=== PATIENT | female | born 1930 | race Caucasian/White ===

== ENCOUNTER 2016-04-07 08:54 | Inpatient (IN) ==
[2016-04-07] MEDS ORDERED: 0.9 % Sodium Chloride 500 ML IVC ONE (08:59)
--- NOTE | 2016-04-07 09:09 | Emergency Department Note ---
Disposition Clinical Impression: Elevated troponin, Elevated brain natriuretic peptide (BNP) level Atrial fibrillation Qualifiers: Atrial fibrillation type: unspecified Qualified Code(s): I48.91 - Unspecified atrial fibrillation Disposition: Admitted As Inpatient Condition: Good Referrals: NO,PCP [Non-Partnered Physician] - Forms: ED Satisfaction Letter General Adult HPI - General Chief complaint: ED Chest Pain Stated complaint: chest pain Time Seen by Provider: 04/07/16 08:59 Nursing Notes Reviewed: Yes Vital Signs Reviewed: Yes - Related Data Home Medications Medication Instructions Recorded Confirmed Alendronate Sodium 70 mg PO QWEEK PRN 03/15/15 03/15/15 Amlodipine [Norvasc] 5 mg PO DAILY 03/15/15 03/15/15 Aspirin Enteric Coated [Aspirin EC] 81 mg PO DAILY 03/15/15 03/15/15 Donepezil [Aricept] 10 mg PO DAILY 03/15/15 03/15/15 Escitalopram [Lexapro] 20 mg PO DAILY 03/15/15 03/15/15 Hydrochlorothiazide [Microzide] 12.5 mg PO DAILY 03/15/15 03/15/15 Levothyroxine [Synthroid] 75 mcg PO DAILY 03/15/15 03/15/15 Losartan [Cozaar] 100 mg PO DAILY 03/15/15 03/15/15 Meloxicam [Mobic] 7.5 mg PO DAILY 03/15/15 03/15/15 Metoprolol [Lopressor] 50 mg PO BID 03/15/15 03/15/15 Multivit-Min/FA/Lycopen/Lutein 1 tab PO DAILY 03/15/15 03/15/15 [Centrum Silver Tablet] Pantoprazole Sodium [Protonix] 40 mg PO BID 03/15/15 03/15/15 Potassium Chloride [Klor-Con 10 meq PO DAILY 03/15/15 03/15/15 Sprinkle] Timolol Maleate 0.5% 1 drop BOTH EYES BID 03/15/15 03/15/15 Allergies Allergy/AdvReac Type Severity Reaction Status Date / Time No Known Allergies Allergy Verified 04/07/16 09:07 Past Medical History - Past Medical History Medical history: Reports: hypertension Surgical history: Reports: cholecystectomy, hysterectomy Psychiatric history: Reports: no psych history WET PAN MIXER history: Reports: no WET PAN MIXER history - Social History Smoking Status: Never smoker Smokeless Tobacco Status: No Alcohol use: Reports: none Drug use: Reports: none Course Vital Signs Temperature 99.2 F 04/07/16 08:55 Pulse Rate 114 04/07/16 08:55 Respiratory Rate 18 04/07/16 08:55 Blood Pressure 160/110 04/07/16 08:55 O2 Sat by Pulse Oximetry 86 L 04/07/16 08:55 Temperature 99.2 F 04/07/16 08:55 Pulse Rate 83 04/07/16 11:07 Respiratory Rate 17 04/07/16 11:07 Blood Pressure 109/82 04/07/16 11:07 O2 Sat by Pulse Oximetry 93 L 04/07/16 11:07 Oxygen Delivery Oxygen Delivery Nasal Cannula Medical Decision Making - MDM Narrative Medical decision making narrative: I examined this patient and my medical decision-making was reviewed with the MUD JACK NOZZLE WORKER/PA/Advanced Practice Nurse/Resident Physician. I agree with the documented findings, disposition and treatment plan as described except to the extent set forth below. Patient presents today with chest discomfort that woke her from sleep this morning medics stated that she had A. fib with RVR. According to her she does not know that she has a history of that. Waiting for her to get here for some better history. And an EKG. She has no chest pain now as she has no fevers no back pain. Saw her today with Dr. Ardon, agree with his evaluation and management plan, supervise care the patient's stay. Most likely she will need admission. Order a cardiac workup and determine whether she needs rate control at this point. Her current EKG shows an atrial fibrillation with rapid ventricular response rate is 120 her QRS is 96 her QTC is 407 no signs of acute ischemia she does have an old EKG from 2014 at that time she was in a sinus rhythm. Chest X-Ray 04/07/16 08:59 IMPRESSION: Cardiomegaly with interstitial pulmonary edema and small right pleural effusion consistent with CHF. D/ / Mechelle Ac MD / Mechelle Ac MD Interpreting Provider: Mechelle Ac MD 1108 hours: Heart rates down in the low 100s, and give her a small dose Lasix and she has CHF. She will need admission. Waiting on the rest of her labs then we will discuss with hospitalist. Repeat EKG shows atrial fibrillation with a decreased rate of 80, QRS is 96, QTC is 414, does have ST segment depression in leads V3 through V6 that was present on the previous EKG and also is a similar pattern on EKG from 2015. Patient does have the elevation in her troponin she did get aspirin here. Is currently having no chest pain. 1130 hrs.: Patient's heart rate now is down in the 80s but still in A. fib. She is doing better at this time. Speaking with hospitalist for admission. Patient's critical care time exclusive A separately billable procedures is 45 minutes. - Lab Data Result diagrams: 04/07/16 09:24 04/07/16 09:24 Lab Results 04/07/16 04/07/16 04/07/16 Range/Units 09:24 09:24 09:24 WBC 9.3 (4.3-11.1) K/mcL RBC 3.50 L (3.82-4.97) M/mcL Hgb 10.3 L (11.5-15.4) g/dL Hct 32.6 L (35.3-44.9) % MCV 93.1 (83.0-100.0) fL MCH 29.4 (28.0-33.3) pg MCHC 31.6 (31.6-35.5) g/dL RDW 13.2 (11.5-14.5) % Plt Count 194 (140-400) K/mcL MPV 10.6 (9.4-12.4) fL Immature Gran % 0.4 (0-4) % Seg Neutrophils % 81.5 % Lymphocytes % 8.9 % Monocytes % 7.6 % Eosinophils % 1.2 % Basophils % 0.4 % Neutrophils # 7.5 (1.6-8.9) K/mcL Lymphocytes # 0.8 (0.6-4.6) K/mcL Monocytes # 0.7 (0.0-1.3) K/mcL Eosinophils # 0.1 (0.0-0.6) K/mcL Basophils # 0.0 (0.0-0.2) K/mcL Sodium 143 (136-145) mEq/L Potassium 3.6 (3.5-4.5) mEq/L Chloride 108 (98-109) mEq/L Carbon Dioxide 29 (19-29) mEq/L BUN 25 H (7-20) mg/dL Creatinine 1.08 (0.57-1.11) mg/dL Est GFR ( Amer) 59 L (> 60) Est GFR (Non-Af Amer) 48 L (> 60) BUN/Creatinine Ratio 23 (6-26) Glucose 104 H (70-99) mg/dL Calculated Osmolality 301 H (280-300) Calcium 8.2 L (8.6-10.8) mg/dL Troponin I 1.29 H* (0-0.03) ng/mL B-Natriuretic Peptide (0-100) pg/mL TSH (0.350-4.840) mcIU/mL 04/07/16 04/07/16 Range/Units 09:24 09:24 WBC (4.3-11.1) K/mcL RBC (3.82-4.97) M/mcL Hgb (11.5-15.4) g/dL Hct (35.3-44.9) % MCV (83.0-100.0) fL MCH (28.0-33.3) pg MCHC (31.6-35.5) g/dL RDW (11.5-14.5) % Plt Count (140-400) K/mcL MPV (9.4-12.4) fL Immature Gran % (0-4) % Seg Neutrophils % % Lymphocytes % % Monocytes % % Eosinophils % % Basophils % % Neutrophils # (1.6-8.9) K/mcL Lymphocytes # (0.6-4.6) K/mcL Monocytes # (0.0-1.3) K/mcL Eosinophils # (0.0-0.6) K/mcL Basophils # (0.0-0.2) K/mcL Sodium (136-145) mEq/L Potassium (3.5-4.5) mEq/L Chloride (98-109) mEq/L Carbon Dioxide (19-29) mEq/L BUN (7-20) mg/dL Creatinine (0.57-1.11) mg/dL Est GFR ( Amer) (> 60) Est GFR (Non-Af Amer) (> 60) BUN/Creatinine Ratio (6-26) Glucose (70-99) mg/dL Calculated Osmolality (280-300) Calcium (8.6-10.8) mg/dL Troponin I (0-0.03) ng/mL B-Natriuretic Peptide 1718 H (0-100) pg/mL TSH 4.241 (0.350-4.840) mcIU/mL
--- NOTE | 2016-04-07 09:19 | Emergency Department Note ---
Disposition Clinical Impression: Elevated troponin, Elevated brain natriuretic peptide (BNP) level Atrial fibrillation Qualifiers: Atrial fibrillation type: unspecified Qualified Code(s): I48.91 - Unspecified atrial fibrillation Disposition: Admitted As Inpatient Condition: Good Chest Pain HPI - General Chief Complaint: ED Chest Pain Stated Complaint: chest pain Time Seen by Provider: 04/07/16 08:59 Source: patient, EMS Vital Signs Reviewed: Yes Nursing Notes Reviewed: Yes - History of Present Illness HPI Narrative: Past medical history of dementia, CVA, hypertension presents by EMS from home for evaluation of chest pain that awoke her from sleep. Patient's symptoms started 2 days ago with fatigue. Patient's chest pain started this a.m. Sharp pain in the middle of her chest. Currently resolved. Found to be in atrial fibrillation with RVR by EMS. Heart rate from 110-160 with a median of 120s. Patient has had fatigue for 2 days but no other instigating symptoms including no fever, chills, weight changes, cough, abdominal pain, changes in bowel movement, urinary symptoms. Severity scale (1-10): 0 - Related Data Home Medications Medication Instructions Recorded Confirmed Alendronate Sodium 70 mg PO QWEEK PRN 03/15/15 03/15/15 Amlodipine [Norvasc] 5 mg PO DAILY 03/15/15 03/15/15 Aspirin Enteric Coated [Aspirin EC] 81 mg PO DAILY 03/15/15 03/15/15 Donepezil [Aricept] 10 mg PO DAILY 03/15/15 03/15/15 Escitalopram [Lexapro] 20 mg PO DAILY 03/15/15 03/15/15 Hydrochlorothiazide [Microzide] 12.5 mg PO DAILY 03/15/15 03/15/15 Levothyroxine [Synthroid] 75 mcg PO DAILY 03/15/15 03/15/15 Losartan [Cozaar] 100 mg PO DAILY 03/15/15 03/15/15 Meloxicam [Mobic] 7.5 mg PO DAILY 03/15/15 03/15/15 Metoprolol [Lopressor] 50 mg PO BID 03/15/15 03/15/15 Multivit-Min/FA/Lycopen/Lutein 1 tab PO DAILY 03/15/15 03/15/15 [Centrum Silver Tablet] Pantoprazole Sodium [Protonix] 40 mg PO BID 03/15/15 03/15/15 Potassium Chloride [Klor-Con 10 meq PO DAILY 03/15/15 03/15/15 Sprinkle] Timolol Maleate 0.5% 1 drop BOTH EYES BID 03/15/15 03/15/15 Allergies Allergy/AdvReac Type Severity Reaction Status Date / Time No Known Allergies Allergy Verified 04/07/16 09:07 Constitutional: Reports: weakness. Denies: fever, chills Eyes: Denies: eye pain Cardiovascular: Reports: chest pain, dyspnea on exertion Respiratory: Denies: cough, wheezes, sputum production Gastrointestinal: Denies: abdominal pain Genitourinary: Denies: urgency, dysuria Musculoskeletal: Denies: back pain Integumentary: Denies: rash, abrasion Psychiatric: Denies: anxiety Endocrine: Reports: fatigue Chest Pain PMH - Past Medical History Medical history: Reports: hypertension Surgical history: Reports: cholecystectomy, hysterectomy Psychiatric history: Reports: no psych history TELEMEDICINE PHYSICIAN history: Reports: no TELEMEDICINE PHYSICIAN history - Social History Smoking Status: Never smoker Alcohol use: Reports: none Drug use: Reports: none Physical Exam - General General appearance: alert, in no apparent distress - Head Head exam: atraumatic, normocephalic - Eye Eye exam: Present: normal appearance - ENT ENT exam: normal exam - Neck Neck exam: Present: normal inspection - Chest Chest inspection: Present: normal inspection, symmetric chest wall rise. Absent : tenderness - Respiratory Respiratory exam: Present: other (Rales at the bases). Absent: respiratory distress - Cardiovascular Cardiovascular exam: Present: tachycardia, irregular rhythm - Abdominal Exam Abdominal exam: Present: soft, Non-Tender - Extremities Exam Extremities exam: Present: normal inspection, full ROM - Back Exam Back exam: Present: normal inspection, full ROM - Neurological Exam Neurological exam: Present: alert, oriented X3 Course - Reevaluation(s) Reevaluation #1: Patient with elevated troponin, BNP, and x-ray consistent with vascular congestion. Patient given Cardizem for atrial fibrillation with RVR. Rate currently controlled. Patient will be admitted to the hospital for further evaluation. - Consultations Consultation #1: Discussed with Dr. Salas. Patient accepted Vital Signs Temperature 99.2 F 04/07/16 08:55 Pulse Rate 114 04/07/16 08:55 Respiratory Rate 18 04/07/16 08:55 Blood Pressure 160/110 04/07/16 08:55 O2 Sat by Pulse Oximetry 86 L 04/07/16 08:55 Temperature 99.2 F 04/07/16 08:55 Pulse Rate 75 04/07/16 11:40 Respiratory Rate 15 04/07/16 11:40 Blood Pressure 138/94 04/07/16 11:40 O2 Sat by Pulse Oximetry 93 L 04/07/16 11:40 Oxygen Delivery Oxygen Delivery Nasal Cannula Chest Pain - MDM Narrative Medical decision making narrative: I examined this patient and my medical decision-making was reviewed with the SUPPORT STAFF/PA/Advanced Practice Nurse/Resident Physician. I agree with the documented findings, disposition and treatment plan as described except to the extent set forth below. Prior this patient with Dr. Ardon, agree with his evaluation and management plan, I supervised patients today. Patient presents today with weakness since being on for a couple days A. fib with RVR which is new. When ahead and did a cardiac workup and treated her. Her heart rate is coming down after getting Cardizem here. They were ready to bring her into the hospital. Impression is acute onset of atrial fib with RVR. She has an elevation in her troponin which may be related to the atrial fibrillation but needs to be followed also. She will continue on the Cardizem. And then we will reassess her and speak to the hospitalist for admission. - Lab Data Result diagrams: 04/07/16 09:24 04/07/16 09:24 Lab Results 04/07/16 04/07/16 04/07/16 Range/Units 09:24 09:24 09:24 WBC 9.3 (4.3-11.1) K/mcL RBC 3.50 L (3.82-4.97) M/mcL Hgb 10.3 L (11.5-15.4) g/dL Hct 32.6 L (35.3-44.9) % MCV 93.1 (83.0-100.0) fL MCH 29.4 (28.0-33.3) pg MCHC 31.6 (31.6-35.5) g/dL RDW 13.2 (11.5-14.5) % Plt Count 194 (140-400) K/mcL MPV 10.6 (9.4-12.4) fL Immature Gran % 0.4 (0-4) % Seg Neutrophils % 81.5 % Lymphocytes % 8.9 % Monocytes % 7.6 % Eosinophils % 1.2 % Basophils % 0.4 % Neutrophils # 7.5 (1.6-8.9) K/mcL Lymphocytes # 0.8 (0.6-4.6) K/mcL Monocytes # 0.7 (0.0-1.3) K/mcL Eosinophils # 0.1 (0.0-0.6) K/mcL Basophils # 0.0 (0.0-0.2) K/mcL Sodium 143 (136-145) mEq/L Potassium 3.6 (3.5-4.5) mEq/L Chloride 108 (98-109) mEq/L Carbon Dioxide 29 (19-29) mEq/L BUN 25 H (7-20) mg/dL Creatinine 1.08 (0.57-1.11) mg/dL Est GFR ( Amer) 59 L (> 60) Est GFR (Non-Af Amer) 48 L (> 60) BUN/Creatinine Ratio 23 (6-26) Glucose 104 H (70-99) mg/dL Calculated Osmolality 301 H (280-300) Calcium 8.2 L (8.6-10.8) mg/dL Troponin I 1.29 H* (0-0.03) ng/mL B-Natriuretic Peptide (0-100) pg/mL TSH (0.350-4.840) mcIU/mL 04/07/16 04/07/16 Range/Units 09:24 09:24 WBC (4.3-11.1) K/mcL RBC (3.82-4.97) M/mcL Hgb (11.5-15.4) g/dL Hct (35.3-44.9) % MCV (83.0-100.0) fL MCH (28.0-33.3) pg MCHC (31.6-35.5) g/dL RDW (11.5-14.5) % Plt Count (140-400) K/mcL MPV (9.4-12.4) fL Immature Gran % (0-4) % Seg Neutrophils % % Lymphocytes % % Monocytes % % Eosinophils % % Basophils % % Neutrophils # (1.6-8.9) K/mcL Lymphocytes # (0.6-4.6) K/mcL Monocytes # (0.0-1.3) K/mcL Eosinophils # (0.0-0.6) K/mcL Basophils # (0.0-0.2) K/mcL Sodium (136-145) mEq/L Potassium (3.5-4.5) mEq/L Chloride (98-109) mEq/L Carbon Dioxide (19-29) mEq/L BUN (7-20) mg/dL Creatinine (0.57-1.11) mg/dL Est GFR ( Amer) (> 60) Est GFR (Non-Af Amer) (> 60) BUN/Creatinine Ratio (6-26) Glucose (70-99) mg/dL Calculated Osmolality (280-300) Calcium (8.6-10.8) mg/dL Troponin I (0-0.03) ng/mL B-Natriuretic Peptide 1718 H (0-100) pg/mL TSH 4.241 (0.350-4.840) mcIU/mL
[2016-04-07] MEDS ORDERED: Aspirin 81 MG TAB.CHEW PO ONE (09:33)
[2016-04-07] MEDS ORDERED: Furosemide 40 MG TABLET PO ONE (09:34)
[2016-04-07 09:48] LABS: Calcium 8.2 mg/dL (8.6-10.8); Potassium 3.6 mEq/L (3.5-4.5)
[2016-04-07 09:51] LABS: Basophils % 0.4 %; Eosinophils # 0.1 K/mcL (0.0-0.6); Eosinophils % 1.2 %; Hematocrit 32.6 % (35.3-44.9); Hemoglobin 10.3 g/dL (11.5-15.4); Immature Granulocytes % 0.4 % (0-4); Lymphocytes # 0.8 K/mcL (0.6-4.6); Lymphocytes % 8.9 %; Mean Corpuscular HGB Conc 31.6 g/dL (31.6-35.5); Mean Corpuscular Hemoglobin 29.4 pg (28.0-33.3); Mean Corpuscular Volume 93.1 fL (83.0-100.0); Mean Platelet Volume 10.6 fL (9.4-12.4); Monocytes # 0.7 K/mcL (0.0-1.3); Monocytes % 7.6 %; Neutrophils # 7.5 K/mcL (1.6-8.9); Platelet Count 194 K/mcL (140-400); Red Cell Distribution Width 13.2 % (11.5-14.5); Segmented Neutrophils % 81.5 %
[2016-04-07] MEDS ORDERED: Ondansetron 4 MG/2 ML VIAL IVP PRN (12:32)
[2016-04-07] MEDS ORDERED: Naloxone 0.4 MG/ML INJ IVP PRN (12:32)
[2016-04-07] MEDS ORDERED: Acetaminophen 325 MG TABLET PO PRN (12:32)
[2016-04-07] MEDS ORDERED: ALENDRONATE 70 MG PO PRN (13:51)
--- NOTE | 2016-04-07 14:05 | Internal Med History&Physical ---
<Drake Salas - Last Filed: 04/07/16 18:14> Date of Encounter: 04/07/16 Internal Medicine - H&P: HPI History of present illness: Ms. Greene is a 85 year old female Internal Medicine - H&P: Meds Alendronate Sodium 70 mg PO QWEEK PRN 03/15/15 [History] Amlodipine [Norvasc] 5 mg PO DAILY 03/15/15 [History] Aspirin Enteric Coated [Aspirin EC] 81 mg PO DAILY 03/15/15 [History] Donepezil [Aricept] 10 mg PO DAILY 03/15/15 [History] Escitalopram [Lexapro] 20 mg PO DAILY 03/15/15 [History] Hydrochlorothiazide [Microzide] 12.5 mg PO DAILY 03/15/15 [History] Levothyroxine [Synthroid] 75 mcg PO DAILY 03/15/15 [History] Losartan [Cozaar] 100 mg PO DAILY 03/15/15 [History] Metoprolol [Lopressor] 50 mg PO BID 03/15/15 [History] Multivit-Min/FA/Lycopen/Lutein [Centrum Silver Tablet] 1 tab PO DAILY 03/15/15 [ History] Pantoprazole Sodium [Protonix] 40 mg PO BID 03/15/15 [History] Potassium Chloride [Klor-Con Sprinkle] 10 meq PO DAILY 03/15/15 [History] Timolol Maleate 0.5% 1 drop BOTH EYES BID 03/15/15 [History] Ergocalciferol (VITAMIN D2) [Vitamin D] 400 unit PO DAILY 04/07/16 [History] Memantine HCl [Memantine HCl] 10 mg PO BID 04/07/16 [History] Naproxen Sodium [Aleve] 220 mg PO DAILY 04/07/16 [History] Allergies No Known Allergies Allergy (Verified 04/07/16 09:07) All Systems PM: A 10-system review of systems was performed and is negative for pertinent findings except as documented above in the HPI. - Constitutional Vitals: Temp Pulse Resp BP Pulse Ox 98.7 F 85 16 166/92 95 04/07/16 13:43 04/07/16 13:43 04/07/16 13:43 04/07/16 13:43 04/07/16 13:43 Internal Med - H&P Results - Labs CBC & Chem 7: 04/07/16 17:21 04/07/16 09:24 Labs: Short CBC 04/07/16 Range/Units 17:21 WBC 9.1 (4.3-11.1) K/mcL Hgb 12.4 D (11.5-15.4) g/dL Hct 38.0 (35.3-44.9) % Plt Count 229 (140-400) K/mcL Cardiac Enzymes 04/07/16 04/07/16 Range/Units 15:09 17:21 Troponin I 2.43 H* 3.42 H* (0-0.03) ng/mL - Impressions ITS Impressions Head CT 04/07/16 13:30 IMPRESSION: Atrophy and moderate small vessel ischemic disease. D/ / Otto Baxter MD / Otto Baxter MD Interpreting Provider: Otto Baxter MD Brain MRI 04/07/16 13:31 IMPRESSION: 1. No acute infarction. 2. Ventriculomegaly which is out of proportion to the degree of brain parenchymal volume loss. This raises the possibility of normal pressure hydrocephalus for which clinical correlation is recommended. 3. Supratentorial white matter signal abnormality compatible with chronic microvascular ischemic changes. D/ 04/07/2016 15:21:27 Mechelle Ac MD / thom Interpreting Provider: Mechelle Ac MD - Attending Attestation I have seen and examined this patient independently. I have discussed the case with the Nurse Practitioner, Gladys Jackson. agree with the data gathering in the HPI, physical examination findings, assessment and plan as documented by our [employer]. New onset a fibwith elevated cardiac biomarkers. History of facial drop, CT and MRI ruled out acute ishcemia or hemorrhage. Will continue with heparin drip and monitor troponins. Cardiology consult. The plan of care was discussed in detail with the patient and family member, they expressed understanding. <Gladys Jackson - Last Filed: 04/08/16 15:46> Date of Encounter: 04/08/16 Time of Encounter: 13:00 Assessment and Plan (1) Atrial fibrillation, new onset Current visit: Yes Status: Acute 1 patient had 2 days of shortness of breath present with chest pain was found to be in A. fib with RVR initiated on Cardizem drip controlled rate 80. No past history of atrial fibrillation. We will continue with Cardizem drip for now consult cardiology 2 we will continue with metoprolol 3 Will obtain cardiac echo 4 continuous cardiac monitoring 5 patient's chads scores 7-Will obtain CT of head to rule out CVA before initiating anticoagulation-patient is high risk for falls (2) Hypothyroid Current visit: Yes Status: Chronic 1 we will continue with Synthroid Qualifiers: Hypothyroidism type: unspecified Qualified Code(s): E03.9 - Hypothyroidism , unspecified (3) DVT prophylaxis Current visit: Yes Status: Acute on heparin (4) Elevated troponin Current visit: Yes Status: Acute 1 first cardiac troponin 1.29-continue to cycle troponins 2 cardiology consulted (5) Hypertension Status: Chronic 1 will continue with BB and cardizem Qualifiers: Hypertension type: essential hypertension Qualified Code(s): I10 - Essential (primary) hypertension (6) CVA (cerebral vascular accident) Current visit: Yes Status: Acute 1 possible new onset CVA- patient has new L sided facial droop. Has hx of HTN and new onset afib- will obtain CT of head and MRI w/o contrast 2 will obtain cardiac echo 3 Carotid dopplers 4 consult neurology as needed Qualifiers: CVA mechanism: unspecified Qualified Code(s): I63.9 - Cerebral infarction, unspecified (7) CHF (congestive heart failure) Current visit: Yes Status: Acute 1 contributing factor patient has new onset of afib- will place on continuos monitoring 2 obtain cardiac echo- last echo 03/2015- EF 60% 3 monitor I/O daily weights 4 lasix 5 will continue with BB 6 low Na diet Qualifiers: Congestive heart failure type: diastolic Congestive heart failure chronicity: acute Qualified Code(s): I50.31 - Acute diastolic (congestive) heart failure Internal Medicine - H&P: HPI Chief complaint: CP Admitted From: Home Plans for Post Hospital Care: Home History of present illness: Ms. Greene is a 85 year old female with past medical history of hypertension thyroid disease CVA dementia. The patient lives alone however they member stay with her during the evening time due to increased confusion at night. The patient is alert oriented to name place and time when questioned why she is at hospital she says I do not know when questioned if she was having chest pain this morning the patient states I do not know. Information obtained from son who is at bedside and provides care to patient. According to the son the patient has been experiencing increasing shortness of breath on exertion for the past 2 days. This a.m. the patient awoke and informed her son that she was experiencing midsternal chest pain. There were no associated symptoms of shortness of breath diaphoresis nausea and lightheadedness. There were no aggravating or relieving factors. The EMS was notified and the pulmonary arrival they noted the patient was in A. fib RVR with heart rate 125-150. She was transported to the ER for further evaluation. According to ER notes upon arrival patient's heart rate was 119 with A. fib with RVR. She was given a Cardizem bolus and started on a Cardizem drip she was also given fluid bolus as well as an aspirin. Chest x-ray did reveal some pulmonary edema and left pleural effusion. Troponin was elevated at 1.29 BNP was 1718. After Cardizem was initiated patient's heart rate did decrease down to 80 that she did continue in atrial fibrillation. She has been admitted for further workup and evaluation of A. fib RVR. Presently patient denies any chest pain or shortness of breath. She is atrial fibrillation on the monitor with rate 70-90. SPO2 is 9394% on 3 L nasal cannula. She has crackles in lung bases bilaterally. During assessment visit the patient has left sided facial droop. Question family if this is normal for the patient they felt that it was unchanged. Reviewed records patient does have a history of CVA there is no documentation of left-sided facial droop. Due to the patient's history of CVA and new onset atrial fibrillation, we will obtain CT of head without contrast as well as MRI. Case reviewed with Dr. Salas who agrees with plan Past Med Surg Social Fam HX - Past Medical History Medical history: hypertension Psychiatric history: no psych history - Past Surgical History Surgical History: cholecystectomy, hysterectomy - Social History Smoking Status: Never smoker Smokeless Tobacco Status: No Alcohol use: none Drug use: none - Family History Father Hx Family Cardiac Disorders: Yes All Systems PM: A 10-system review of systems was performed and is negative for pertinent findings except as documented above in the HPI. - Constitutional Constitutional: no chills, no fever(s), no night sweats - EENT Eyes: no change in vision, no discharge, no pain, no photophobia Nose, mouth and throat: no dysphagia, no nasal discharge, no neck pain, no sore throat - Cardiovascular Cardiovascular ROS IM: chest pain, dyspnea on exertion - Respiratory Respiratory: dyspnea on exertion - Gastrointestinal Gastrointestinal: no abdominal pain, no diarrhea, no hematemesis, no hematochezia, no melena, no nausea, no vomiting - Genitourinary Genitourinary: no change in urinary stream, no dysuria, no flank pain, no hematuria - Neurological Neurological ROS: no confusion, no convulsions, no focal weakness, no numbness, no tingling, no tremor(s) - Constitutional Vitals: Temp Pulse Resp BP Pulse Ox 98.7 F 85 16 166/92 95 04/07/16 13:43 04/07/16 13:43 04/07/16 13:43 04/07/16 13:43 04/07/16 13:43 General appearance: Present: A&O X 3, answers questions appropriately Exam: Has difficulty with short-term memory - Head Head exam: Present: atraumatic, normocephalic - Respiratory Respiratory exam: Absent: accessory muscle use, rales, wheezes Additional comments: Patient has crackles in bases bilaterally - Cardiovascular Cardiovascular exam: Present: irregular rhythm, +S1, +S2. Absent: diastolic murmur, gallop, rubs, systolic murmur - GI/Abdominal GI/Abdominal exam: Present: normal bowel sounds, soft, no peritoneal signs. Absent: distended, tenderness - Extremities Exam Extremities exam: Present: warm, radial pulses palpable and symetrical. Absent : calf tenderness, cyanotic, pedal edema - Neurological Exam Neurological exam: Present: CN II-XII intact, oriented X3, no focal deficits, facial droop. Absent: pronater drift, speech deficit Additional comments: a left-sided facial droop - Skin Skin exam: Present: dry, intact Internal Med - H&P Results - Labs CBC & Chem 7: 04/08/16 00:38 04/08/16 00:38 - EKG Data Prior EKG available for review: yes When compared to previous EKG: there are significant changes EKG comments: 04/07/16 14:25 Patient appears to be in atrial fibrillation there is - Diagnostic Studies Chest x-ray Additional comments: Per radiology read cardiomegaly and pulmonary edema with small right pleural effusion consistent with CHF
[2016-04-07] MEDS ORDERED: *HR* Heparin 5,000 UNIT/ML VIAL IVP PRN ×2 (16:21)
[2016-04-07] MEDS ORDERED: *HR* Heparin 5,000 UNIT/ML VIAL IVP ONE (16:21)
[2016-04-07 17:28] LABS: Immature Platelets 4.6 % (1.1-6.1); Mean Corpuscular HGB Conc 32.6 g/dL (31.6-35.5); Mean Corpuscular Hemoglobin 30.2 pg (28.0-33.3); Mean Corpuscular Volume 92.5 fL (83.0-100.0); Mean Platelet Volume 10.3 fL (9.4-12.4); Red Blood Count 4.11 M/mcL (3.82-4.97); Red Cell Distribution Width 13.2 % (11.5-14.5)
[2016-04-07 17:30] LABS: Hemoglobin 12.4 g/dL (11.5-15.4)
[2016-04-07 17:33] LABS: INR 1.1; Prothrombin Time 12.3 Seconds (9.4-12.1)
[2016-04-07 17:35] LABS: Activated Partial Thrombo Time 33.3 Seconds (26.0-36.0)
[2016-04-07] MEDS: Heparin 25,000 UNIT/500 ML D5W 25,000 UNIT/500 ML MLS IVC SCH (17:52)
--- NOTE | 2016-04-07 18:57 | Event Note ---
Date of Encounter: 04/07/16 Time of Encounter: 18:52 The patient's Troponin has trended up from 1.29 to 3,42. She denies any CP or SOB. She continues to be atrial fib on the monitor at rate of 88. She is on cardizem gtt at 5mg and is on heparin gtt. She is on plavix ASA statin and BB No changes in EKG Notified Dr Vargas of changes. He would like for us to continue with current treatment .
[2016-04-08 00:53] LABS: Basophils % 0.3 %; Eosinophils # 0.1 K/mcL (0.0-0.6); Hematocrit 35.5 % (35.3-44.9); Hemoglobin 11.6 g/dL (11.5-15.4); Immature Granulocytes % 0.5 % (0-4); Immature Platelets 4.4 % (1.1-6.1); Lymphocytes # 1.4 K/mcL (0.6-4.6); Lymphocytes % 14.3 %; Mean Corpuscular HGB Conc 32.7 g/dL (31.6-35.5); Mean Corpuscular Hemoglobin 29.8 pg (28.0-33.3); Mean Corpuscular Volume 91.3 fL (83.0-100.0); Mean Platelet Volume 10.6 fL (9.4-12.4); Monocytes % 10.6 %; Platelet Count 233 K/mcL (140-400); Red Blood Count 3.89 M/mcL (3.82-4.97); Red Cell Distribution Width 13.2 % (11.5-14.5); Segmented Neutrophils % 73.3 %
[2016-04-08 01:12] LABS: Calcium 8.3 mg/dL (8.6-10.8)
--- NOTE | 2016-04-08 08:53 | Cardiology Consult Note ---
Date of Encounter: 04/08/16 Time of Encounter: 08:51 Assessment and Plan (1) NSTEMI (non-ST elevated myocardial infarction) Current Visit: Yes Status: Acute Elevated troponin, 3.42, 4.63. She reportedly came in with chest pain. EKG shows ST-T wave abnormalities. Continue to trend troponin. Check TTE. Patient is confused. She is only oriented to self. Continue medical management with heparin drip for 48 hours. We will discuss further management with family. She is currently chest pain- free. (2) Atrial fibrillation, new onset Current Visit: Yes Status: Acute Presented with atrial fibrillation with RVR. She is now rate controlled on a Cardizem drip. A home dose of Lopressor. We will consider converting to oral Cardizem once echocardiogram is complete. On heparin drip for anticoagulation. CHADS VASc=6(HTN, age, CVA, gender). I discussed anticoagulation with Coumadin or NOAC. I attempted to call patient's son but was unable to contact him. We will discuss anticoagulation further with her family. (3) CHF (congestive heart failure) Current Visit: Yes Status: Acute BNP elevated at 1718. Chest x-ray showed interstitial pulmonary edema, CHF. She was given IV Lasix. No overt CHF seen on exam this morning. TTE pending. Low-sodium diet and daily weights. Strict I&O. TTE 03/16/2015-EF 60%, mild diastolic dysfunction, mild aortic regurgitation. Qualifiers: Congestive heart failure type: diastolic Congestive heart failure chronicity: acute Qualified Code(s): I50.31 - Acute diastolic (congestive) heart failure Discussion w patient/family: The assessment and plan as outlined above was discussed with the patient and/or family members who expressed understanding and agreement. All questions were answered. Thank you for involving us in the care of your patient. Please call with any questions. History of Present Illness Consult date: 04/08/16 Requesting physician: Gladys Jackson Consult reason: New afib, elevated troponin Chief complaint: Chest pain History of present illness: Ms. Greene is a 85 year old female with a history of hypertension, CVA, and dementia who presented with chest pain. She was found to be in atrial fibrillation with RVR with heart rate in the 120s. She was started on a Cardizem drip improvement in her heart rate. She was also placed on a heparin drip. She was also seen to have a facial droop in the emergency room. A MRI was completed and negative for infarct. She denies review is history of CAD or atrial fibrillation. Initial lab review revealed an elevated BNP at 1718, elevated troponin at 3.42, BUN 23, creatinine 1.33, and normal CBC. On my exam the patient reports she does not remember why she is here. She is oriented to self only. There was no family at bedside. Information was obtained from previous records. She currently denies chest pain, shortness of breath, or palpitations. Past Med Surg Social Fam HX - Past Medical History Medical history: CVA, dementia, hypertension Psychiatric history: no psych history - Past Surgical History Surgical History: cholecystectomy, hysterectomy - Social History Smoking Status: Never smoker Smokeless Tobacco Status: No Alcohol use: none Drug use: none - Family History Father Hx Family Cardiac Disorders: Yes Medications and Allergies Alendronate Sodium 70 mg PO QWEEK PRN 03/15/15 [History] Amlodipine [Norvasc] 5 mg PO DAILY 03/15/15 [History] Aspirin Enteric Coated [Aspirin EC] 81 mg PO DAILY 03/15/15 [History] Donepezil [Aricept] 10 mg PO DAILY 03/15/15 [History] Escitalopram [Lexapro] 20 mg PO DAILY 03/15/15 [History] Hydrochlorothiazide [Microzide] 12.5 mg PO DAILY 03/15/15 [History] Levothyroxine [Synthroid] 75 mcg PO DAILY 03/15/15 [History] Losartan [Cozaar] 100 mg PO DAILY 03/15/15 [History] Metoprolol [Lopressor] 50 mg PO BID 03/15/15 [History] Multivit-Min/FA/Lycopen/Lutein [Centrum Silver Tablet] 1 tab PO DAILY 03/15/15 [ History] Pantoprazole Sodium [Protonix] 40 mg PO BID 03/15/15 [History] Potassium Chloride [Klor-Con Sprinkle] 10 meq PO DAILY 03/15/15 [History] Timolol Maleate 0.5% 1 drop BOTH EYES BID 03/15/15 [History] Ergocalciferol (VITAMIN D2) [Vitamin D] 400 unit PO DAILY 04/07/16 [History] Memantine HCl [Memantine HCl] 10 mg PO BID 04/07/16 [History] Naproxen Sodium [Aleve] 220 mg PO DAILY 04/07/16 [History] Allergies No Known Allergies Allergy (Verified 04/07/16 09:07) All Systems Review: A 10-system review of systems was performed and is negative for pertinent findings except as documented above in the HPI. Physical Examination Vital Signs, Last 4 Hours Temp Pulse Resp BP Pulse Ox 04/08/16 08:13 97.4 F L 120 18 144/97 98 04/08/16 05:09 98.6 F 62 18 117/88 95 General: Conversant, No Apparent Distress HEENT: Atraumatic, Normocephaly, Mucus Membranes Moist Neck: No JVD, Normal carotid pulses Cardiac: Reg Rate and Rhythm, Normal S1 and S2, No Murmur Lungs: Normal Breath Sounds, No Wheeze, Rales, Rhonchi Neuro: Alert and responsive, No focal deficits noted Abdomen: Soft, Non-Tender Skin: No rashes noted on visualized skin Musculoskeletal: No Chest Wall Tenderness Extremities: No Clubbing, No Cyanosis, No Edema, Normal Pulses Results 04/08/16 00:38 04/08/16 00:38 Lab Results 04/07/16 04/07/16 04/07/16 15:09 17:21 17:21 WBC 9.1 Hgb 12.4 D Hct 38.0 Plt Count 229 INR APTT Sodium Potassium Chloride Carbon Dioxide BUN Creatinine Glucose Calcium Troponin I 2.43 H* 3.42 H* 04/07/16 04/07/16 04/08/16 17:21 20:38 00:38 WBC 9.6 Hgb 11.6 Hct 35.5 Plt Count 233 INR 1.1 APTT 33.3 100.9 H D Sodium Potassium Chloride Carbon Dioxide BUN Creatinine Glucose Calcium Troponin I 04/08/16 04/08/16 04/08/16 00:38 00:38 00:40 WBC Hgb Hct Plt Count INR APTT 63.3 H Sodium 141 Potassium 3.0 L Chloride 101 Carbon Dioxide 30 H BUN 23 H Creatinine 1.33 H Glucose 116 H Calcium 8.3 L Troponin I 4.63 H* 04/08/16 07:15 WBC Hgb Hct Plt Count INR APTT 57.0 H Sodium Potassium Chloride Carbon Dioxide BUN Creatinine Glucose Calcium Troponin I Chest X-Ray 04/07/16 08:59 IMPRESSION: Cardiomegaly with interstitial pulmonary edema and small right pleural effusion consistent with CHF. D/ / Mechelle Ac MD / Mechelle Ac MD Interpreting Provider: Mechelle Ac MD Head CT 04/07/16 13:30 IMPRESSION: Atrophy and moderate small vessel ischemic disease. D/ / Otto Baxter MD / Otto Baxter MD Interpreting Provider: Otto Baxter MD Brain MRI 04/07/16 13:31 IMPRESSION: 1. No acute infarction. 2. Ventriculomegaly which is out of proportion to the degree of brain parenchymal volume loss. This raises the possibility of normal pressure hydrocephalus for which clinical correlation is recommended. 3. Supratentorial white matter signal abnormality compatible with chronic microvascular ischemic changes. D/ : / 04/07/2016 15:21:27 Mechelle Ac MD / thom Interpreting Provider: Mechelle Ac MD - Imaging and Cardiology Echo: report reviewed (03/16/2015EF 60%, mild diastolic dysfunction, mild aortic regurgitation.) - EKG Interpretation EKG results cardiology: personally reviewed (Atrial fibrillation the heart rate is [address] T wave abnormality in the anterior lateral leads. Also T- wave abnormalities in lead 1 and lead 2.) Consult Discharge Plan - Plan Referrals: Ronald Giang DO [Primary Care Provider] - (web request sent on 2015 )
[2016-04-08] MEDS: Aspirin Enteric Coated 81 MG Tablet PO SCH (08:58)
[2016-04-08] MEDS: Cholecalciferol (D-3) 1,000 UNIT TABLET PO SCH (08:59)
[2016-04-08] MEDS: Multivit/Ca/Min/Fe/FA 1 TAB TABLET PO SCH (08:59)
[2016-04-08] MEDS ORDERED: Furosemide 20 MG/2 ML VIAL IVP SCH (09:00)
[2016-04-08] MEDS ORDERED: 0.9 % Sodium Chloride 500 ML ONE (16:00)
--- NOTE | 2016-04-08 16:45 | Internal Med Progress Note ---
Date of Encounter: 04/08/16 Time of Encounter: 13:00 - Assessment and plan (1) NSTEMI (non-ST elevated myocardial infarction) Current Visit: Yes Status: Acute Assessment and plan: Currently on heparin drip. Appreciate cardiology evaluation. Will maximize medically at this time. Echo pending. On ASA too. (2) Atrial fibrillation Current Visit: Yes Status: Acute Assessment and plan: On heparin drip. D/W niece that need to weigh risks of anticoagulation with her age, falls, etc. Echo pending. Qualifiers: Atrial fibrillation type: persistent Qualified Code(s): I48.1 - Persistent atrial fibrillation (3) CHF (congestive heart failure) Current Visit: Yes Status: Acute Assessment and plan: Continue medical management. Echo pending to eval LV function at this time. Qualifiers: Congestive heart failure type: diastolic Congestive heart failure chronicity: acute Qualified Code(s): I50.31 - Acute diastolic (congestive) heart failure (4) Acute renal insufficiency Current Visit: Yes Status: Acute Assessment and plan: Most likely related to acute cardiac event. Follow. (5) Hypokalemia Current Visit: Yes Status: Acute Assessment and plan: Replace (6) Hypertension Current Visit: Yes Status: Chronic Assessment and plan: Continue home meds and monitoring. Qualifiers: Hypertension type: essential hypertension Qualified Code(s): I10 - Essential (primary) hypertension (7) Dementia Current Visit: Yes Status: Chronic Assessment and plan: Supportive care. Qualifiers: Dementia type: vascular dementia Dementia behavioral disturbance: without behavioral disturbance Qualified Code(s): F01.50 - Vascular dementia without behavioral disturbance (8) Protein calorie malnutrition Current Visit: No Status: Chronic Assessment and plan: Monitoring. - Subjective Interval history: Ms. Greene is currently admitted for probable CVA as well as new onset rapid atrial fibrillation and acute PA. She remains high risk due to the potential of compromise neurologically or cardiovascularly. Ms. Greene is getting carotid duplex currently. She denies pain or dyspnea. No parasthesias currently. She slept OK but not great. No CP. No diarrhea or other GI issues. Niece is at bedside and updated on condition. MRI was negative for acute stroke. - Constitutional Vitals: Temp Pulse Resp BP Pulse Ox 97.3 F L 104 16 128/78 95 04/08/16 11:15 04/08/16 11:15 04/08/16 11:15 04/08/16 11:15 04/08/16 11:15 General appearance: Present: A&O X 3, pleasant, answers questions appropriately - Head Head exam: Present: normocephalic - Eye Eye exam: Present: EOMI, conjuntiva pink - ENT ENT exam: Present: mucous membranes dry - Respiratory Respiratory exam: Present: decreased breath sounds, CTAB - Cardiovascular Cardiovascular exam: Present: distant heart sounds, irregular rhythm. Absent: tachycardia - GI/Abdominal GI/Abdominal exam: Present: soft. Absent: mass, tenderness - Extremities Exam Extremities exam: Present: warm. Absent: pedal edema - Neurological Exam Neurological exam: Present: alert, oriented X3, no focal deficits - Skin Skin exam: Present: dry, normal color, warm. Absent: rash Internal Medicine: Result - Labs CBC & Chem 7: 04/08/16 00:38 04/08/16 00:38 Labs: Short CBC 04/07/16 04/08/16 Range/Units 17:21 00:38 WBC 9.1 9.6 (4.3-11.1) K/mcL Hgb 12.4 D 11.6 (11.5-15.4) g/dL Hct 38.0 35.5 (35.3-44.9) % Plt Count 229 233 (140-400) K/mcL Neutrophils # 7.0 (1.6-8.9) K/mcL BMP 04/08/16 00:38 Sodium 141 Potassium 3.0 L Chloride 101 Carbon Dioxide 30 H BUN 23 H Creatinine 1.33 H Glucose 116 H Calcium 8.3 L Cardiac Enzymes 04/07/16 04/08/16 Range/Units 17:21 00:38 Troponin I 3.42 H* 4.63 H* (0-0.03) ng/mL - ABG Interpretation ABG results: PT/INR, D-dimer PT 12.3 Seconds (9.4-12.1) H 04/07/16 17:21 - Impressions Impressions Brain MRI 04/07/16 13:31 IMPRESSION: 1. No acute infarction. 2. Ventriculomegaly which is out of proportion to the degree of brain parenchymal volume loss. This raises the possibility of normal pressure hydrocephalus for which clinical correlation is recommended. 3. Supratentorial white matter signal abnormality compatible with chronic microvascular ischemic changes. D/ / 04/07/2016 15:21:27 Mechelle Ac MD / thom Interpreting Provider: Mechelle Ac MD Consult Discharge Plan - Plan Referrals: Ronald Giang DO [Primary Care Provider] - (web request sent on 2015 )
[2016-04-08] MEDS ORDERED: *HR* LORazepam 0.5 MG TABLET PO PRN (17:27)
[2016-04-08] MEDS: Heparin 25,000 UNIT/500 ML D5W 25,000 UNIT/500 ML MLS IVC SCH (17:53)
[2016-04-09] MEDS ORDERED: 0.9 % Sodium Chloride 500 ML ONE (02:32)
[2016-04-09 04:59] LABS: Calcium 7.4 mg/dL (8.6-10.8); Magnesium 1.1 mg/dL (1.6-2.6); Potassium 2.9 mEq/L (3.5-4.5)
[2016-04-09 05:44] LABS: Hematocrit 33.3 % (35.3-44.9); Hemoglobin 10.7 g/dL (11.5-15.4); Mean Corpuscular HGB Conc 32.1 g/dL (31.6-35.5); Mean Corpuscular Hemoglobin 29.7 pg (28.0-33.3); Mean Corpuscular Volume 92.5 fL (83.0-100.0); Platelet Count 211 K/mcL (140-400); Red Cell Distribution Width 13.2 % (11.5-14.5)
[2016-04-09 05:45] LABS: Mean Platelet Volume 10.9 fL (9.4-12.4)
[2016-04-09] MEDS ORDERED: Magnesium Sulfate 1 GM in D5% in Water 100 ML IVPB ONE (07:39)
[2016-04-09] MEDS: Cholecalciferol (D-3) 1,000 UNIT TABLET PO SCH (08:57)
[2016-04-09] MEDS: Multivit/Ca/Min/Fe/FA 1 TAB TABLET PO SCH (08:57)
[2016-04-09] MEDS: Aspirin Enteric Coated 81 MG Tablet PO SCH (08:57)
[2016-04-09] MEDS ORDERED: Metoprolol XL (24 HR) Succ 50 MG TAB.ER.24H PO SCH (09:00)
--- NOTE | 2016-04-09 09:08 | ECHO - Doppler Report ---
Echo with Saline Contrast Name: Deb Greene Date of Study: 04/08/2016 Date: 1930 Ht: 63.0 in Medical Record#: [id number] Age: 85 Wt: 111.0 lb Gender: Female BSA: 1.51 Order #: [id number] Location: [facility] Room #: 2A31 Reading Physician: Tyler Costa DO, FACRaegan, MONA VAZQUEZ Chief Strategy Officer: Norah Trujillo RVT, RDCS Ordering Physician: Gladys Jackson CNP Primary Physician: Robbie Giang DO Indications: new onset afib Impressions: LVEF 60-65%. Normal LV chamber size and function. Mild concentric left ventricular hypertrophy. Normal right ventricular structure and function. No evidence of PFO with agitated saline contrast. Indeterminate diastolic function. Mild aortic regurgitation. Mild mitral regurgitation. No evidence of pulmonary hypertension identified. Left Ventricular Wall Motion: Rest Echo Findings All wall segments showed normal motion. Findings: Study Quality * Technically adequate exam. ECG Findings * Atrial fibrillation. Left Ventricle * LVEF 60-65%. * Normal LV chamber size and function. * Mild concentric left ventricular hypertrophy. * Indeterminate diastolic function. Right Ventricle * Normal right ventricular structure and function. Left Atrium * Mildly dilated left atrium. Right Atrium * Normal right atrial size. Interatrial Septum * No evidence of PFO with agitated saline contrast. Aortic Valve * Trileaflet aortic valve. * Mildly sclerotic aortic valve leaflets. * Mild aortic regurgitation. * No aortic stenosis. Mitral Valve * Mildly thickened mitral valve leaflets. * Mild mitral annular calcification * Mild mitral regurgitation. * No mitral stenosis. Tricuspid Valve * Normal tricuspid valve structure and function. * Trace tricuspid regurgitation. * No evidence of pulmonary hypertension. Pulmonic Valve * Normal pulmonic valve structure and function. * Trace pulmonic regurgitation. Aorta * Normally sized aortic root. Pericardium * The pericardium appears normal. IVC * Normal IVC dimensions and inspiratory collapse. Pulmonary Artery * Normal visualized portions of the main pulmonary artery. History Hypertension 03-16-2015 a Previous Echo was performed. Contrast: Agitated saline 20 ml. Measurements: BP: 128/ 78 2D Normal Values RVIDd: 3.00 cm <2.7 cm IVSd: 1.20 cm 0.6 - 1.0 cm LVIDd: 4.40 cm 3.7 - 5.6 cm LVPWd: 1.00 cm 0.6 - 1.1 cm LVIDs: 3.50 cm 1.5 - 3.6 cm AO: 2.90 cm < 4.0 cm LA: 3.20 cm 2.0 - 4.0cm %FS: 20.50 cm >25 % LA volume: 43 Mitral Valve Dec Time:236.00 msec Peak E:.80 m/sec Peak A:.34 m/sec E/A Ratio:2.3 Peak E' Lat Matteo:6.82 cm/s Peak E' Med Matteo:5.95 cm/s E/E' Lat Ratio:11.7 E/E' Med Ratio:13.4 Aortic Valve AI pressure Half-time: 801.00 msec Tricuspid Valve TV Regurg Peak Grad: 27.00mmHg TV Regurg Peak Matteo: 2.61m/sec Updated by Tyler Costa DO, UCHE, MONA VAZQUEZ on 04/09/2016 9:04:00 AM electronically signed on 04/09/2016 9:04:39 AM with status of Final Wall Motion Baugh: 1=Normal, 2=Hypokinesis, 3=Akinesis, 4=Dyskinesis, 5=Aneurysmal, 6=Hyperkinetic, X=Not Visualized (Blank)=Missing
--- NOTE | 2016-04-09 09:38 | Internal Med Progress Note ---
<Brandon Alonso - Last Filed: 04/09/16 09:36> Date of Encounter: 04/09/16 Time of Encounter: 09:00 - Assessment and plan (1) Atrial fibrillation, new onset Current Visit: Yes Status: Acute Assessment and plan: Patients rate is regular currently. She is being aniticoagulated with heparin. Patients [id number] is 7 (age,HTN, gender, CHF, CVA,) and HASBLED is 3 (CVA, age,aspirin). Patient will need skilled nursing anticoagulation. Cardiology on board. (2) NSTEMI (non-ST elevated myocardial infarction) Current Visit: Yes Status: Acute Assessment and plan: anticoagulated on heparin. Echo shows EF 60% with mild aortic and mitral regurg , no wall motion abnormalaties. Continue aspirin, statin and bblocker (3) Acute renal insufficiency Current Visit: Yes Status: Resolved Assessment and plan: 2nd to ACS. Resolved. Scr back to baseline. (4) CHF (congestive heart failure) Current Visit: Yes Status: Acute Assessment and plan: Continue medical management. Echo does not show LV dystolic dysfunction. On physical exam patient has no evidence of fluid retention. Qualifiers: Congestive heart failure type: diastolic Congestive heart failure chronicity: acute Qualified Code(s): I50.31 - Acute diastolic (congestive) heart failure (5) DVT prophylaxis Current Visit: Yes Status: Acute Assessment and plan: Heparin (6) Hypokalemia Current Visit: Yes Status: Acute Assessment and plan: K is 2.9 replace with 40 IV. (7) Hypertension Current Visit: Yes Status: Chronic Assessment and plan: Continue home meds and monitoring. Qualifiers: Hypertension type: essential hypertension Qualified Code(s): I10 - Essential (primary) hypertension (8) Protein calorie malnutrition Current Visit: No Status: Chronic Assessment and plan: Monitoring. - Subjective Interval history: Patient reports no problems overnight. She denies chest pain and sob. - Constitutional Vitals: Temp Pulse Resp BP Pulse Ox 97.9 F 92 18 128/85 99 04/09/16 06:43 04/09/16 06:43 04/09/16 06:43 04/09/16 06:43 04/09/16 08:26 General appearance: Present: A&O X 3, pleasant, answers questions appropriately - Respiratory Respiratory exam: Present: CTAB. Absent: rales, rhonchi, wheezes - Cardiovascular Cardiovascular exam: Present: RRR, +S1, +S2 - GI/Abdominal GI/Abdominal exam: Present: normal bowel sounds, soft, no peritoneal signs. Absent: distended, tenderness - Extremities Exam Extremities exam: Present: warm, radial pulses palpable and symetrical. Absent : calf tenderness, cyanotic, pedal edema - Skin Skin exam: Present: dry, intact Internal Medicine: Result - Labs CBC & Chem 7: 04/09/16 04:08 04/09/16 04:08 Labs: Short CBC 04/09/16 Range/Units 04:08 WBC 6.6 (4.3-11.1) K/mcL Hgb 10.7 L (11.5-15.4) g/dL Hct 33.3 L (35.3-44.9) % Plt Count 211 (140-400) K/mcL BMP 04/09/16 04:08 Sodium 144 Potassium 2.9 L Chloride 106 Carbon Dioxide 29 BUN 25 H Creatinine 1.16 H Glucose 109 H Calcium 7.4 L Cardiac Enzymes 04/08/16 Range/Units 18:11 Troponin I 3.00 H* (0-0.03) ng/mL - ABG Interpretation ABG results: PT/INR, D-dimer PT 12.3 Seconds (9.4-12.1) H 04/07/16 17:21 - Impressions Impressions Brain MRI 04/07/16 13:31 IMPRESSION: 1. No acute infarction. 2. Ventriculomegaly which is out of proportion to the degree of brain parenchymal volume loss. This raises the possibility of normal pressure hydrocephalus for which clinical correlation is recommended. 3. Supratentorial white matter signal abnormality compatible with chronic microvascular ischemic changes. D/ 04/07/2016 15:21:27 Mechelle Ac MD / thom Interpreting Provider: Mechelle Ac MD Consult Discharge Plan - Plan Referrals: Ronald Giang DO [Primary Care Provider] - 04/17/16 9:30 am () Prescriptions: Apixaban [Eliquis] 2.5 mg PO BID #60 tablet <Toney Sheldon - Last Filed: 04/09/16 19:50> Date of Encounter: 04/09/16 - Assessment and plan (1) NSTEMI (non-ST elevated myocardial infarction) Current Visit: Yes Status: Acute (2) Atrial fibrillation Current Visit: Yes Status: Acute Qualifiers: Atrial fibrillation type: persistent Qualified Code(s): I48.1 - Persistent atrial fibrillation (3) CHF (congestive heart failure) Current Visit: Yes Status: Acute Qualifiers: Congestive heart failure type: diastolic Congestive heart failure chronicity: acute Qualified Code(s): I50.31 - Acute diastolic (congestive) heart failure (4) Acute renal insufficiency Current Visit: Yes Status: Resolved (5) Hypokalemia Current Visit: Yes Status: Acute (6) Hypertension Current Visit: Yes Status: Chronic Qualifiers: Hypertension type: essential hypertension Qualified Code(s): I10 - Essential (primary) hypertension (7) Dementia Current Visit: Yes Status: Chronic Qualifiers: Dementia type: vascular dementia Dementia behavioral disturbance: without behavioral disturbance Qualified Code(s): F01.50 - Vascular dementia without behavioral disturbance (8) Protein calorie malnutrition Current Visit: No Status: Chronic (9) Hypomagnesemia Current Visit: Yes Status: Acute - Constitutional Vitals: Temp Pulse Resp BP Pulse Ox 97.7 F 96 16 123/81 94 L 04/09/16 14:52 04/09/16 14:52 04/09/16 14:52 04/09/16 14:52 04/09/16 14:52 Internal Medicine: Result - Labs CBC & Chem 7: 04/09/16 04:08 04/09/16 04:08 Labs: Short CBC 04/09/16 Range/Units 04:08 WBC 6.6 (4.3-11.1) K/mcL Hgb 10.7 L (11.5-15.4) g/dL Hct 33.3 L (35.3-44.9) % Plt Count 211 (140-400) K/mcL BMP 04/09/16 04:08 Sodium 144 Potassium 2.9 L Chloride 106 Carbon Dioxide 29 BUN 25 H Creatinine 1.16 H Glucose 109 H Calcium 7.4 L - ABG Interpretation ABG results: PT/INR, D-dimer PT 12.3 Seconds (9.4-12.1) H 04/07/16 17:21 - Attending Attestation I examined this patient and my medical decision-making was reviewed with the Resident Physician. I agree with the documented findings, disposition and treatment plan as described except to the extent set forth below. Ms. Greene is currently admitted for new a fib and NSTEMI. She remains high risk due to potential for cardiac decompensation. Ms. Greene is feeling better today. No CP or SOB. No GI symptoms. Exam Alert Comfortable Heart irreg No wheeze No edema I/P 1. A fib 2. NSTEMI 3. Dementia Further diagnoses and plan as above Probable d/c tomorrow with Jonah.
--- NOTE | 2016-04-09 10:15 | Cardiology Progress Note ---
Date of Encounter: 04/09/16 Time of Encounter: 09:00 Assessment and Plan (1) NSTEMI (non-ST elevated myocardial infarction) Current Visit: Yes Status: Acute Elevated troponin, 3.42, 4.63, 3.00. Trending downward. She reportedly came in with chest pain but is now chest pain free. EKG shows ST-T wave abnormalities. TTE- EF 60-65%, mild LVH, mild aortic regurgitation, mild mitral regurgitation. Continue heparin gtt for 48hr, will be completed at 1630 today. Asa, statin, and beta-shirley. D/t age, confusion, and HALEY medical management recommended. Son agrees with plan. LHC vs medical medical management was discussed. Indications, benefits, and risks of LHC discussed with son. He and pt agrees with medical management. (2) Atrial fibrillation, new onset Current Visit: Yes Status: Acute Rate controlled on lopressor and cardizem. Chenge cardizem to oral. TTE reviewed. Anticoagulation discussed with son and patient. Agreeable to anticoagulation. I will send eliquis 2.5 mg BID through pharmacy to eckert check (creatinine clearance=32). If affordable start this evening once heparin gtt d/c'd. (3) CHF (congestive heart failure) Current Visit: Yes Status: Acute TTE shows normal LVEF at 60-65%. Likely secondary to AL and afib with RVR. Euvolemic on exam. Now rate control afib. Low sodium diet. Qualifiers: Congestive heart failure type: diastolic Congestive heart failure chronicity: acute Qualified Code(s): I50.31 - Acute diastolic (congestive) heart failure Discussion w patient/family: The assessment and plan as outlined above was discussed with the patient and/or family members who expressed understanding and agreement. All questions were answered. Thank you for involving us in the care of your patient. Please call with any questions. Subjective Principal diagnosis: NSTEMI, AFib new onset Interval history: Pt resting in bed quietly. Denies chest pain. Afib continues to be rate controlled. Family at bedside Objective Vital Signs, Last 4 Hours Temp Pulse Resp BP Pulse Ox 04/09/16 08:26 99 04/09/16 06:43 97.9 F 92 18 128/85 99 General: Conversant, No Apparent Distress, Other (Confused, oriented to self.) HEENT: Atraumatic, Normocephaly, Mucus Membranes Moist Neck: No JVD, Normal carotid pulses Cardiac: Other (Irregularly irregular. ) Lungs: Normal Breath Sounds, No Wheeze, Rales, Rhonchi Neuro: Alert and responsive, No focal deficits noted Abdomen: Soft, Non-Tender Skin: No rashes noted on visualized skin Musculoskeletal: No Chest Wall Tenderness Extremities: No Clubbing, No Cyanosis, No Edema, Normal Pulses Results 04/09/16 04:08 04/09/16 04:08 Lab Results 04/08/16 04/08/16 04/08/16 13:08 16:54 18:11 WBC Hgb Hct Plt Count APTT 70.9 H 69.1 H Sodium Potassium Chloride Carbon Dioxide BUN Creatinine Glucose Calcium Magnesium Troponin I 3.00 H* 04/08/16 04/09/16 04/09/16 20:22 04:08 04:08 WBC 6.6 Hgb 10.7 L Hct 33.3 L Plt Count 211 APTT 76.1 H Sodium 144 Potassium 2.9 L Chloride 106 Carbon Dioxide 29 BUN 25 H Creatinine 1.16 H Glucose 109 H Calcium 7.4 L Magnesium 1.1 L Troponin I 04/09/16 04:08 WBC Hgb Hct Plt Count APTT 65.4 H Sodium Potassium Chloride Carbon Dioxide BUN Creatinine Glucose Calcium Magnesium Troponin I - Imaging and Cardiology Echo: report reviewed - EKG Interpretation EKG results cardiology: other Consult Discharge Plan - Plan Referrals: Ronald Giang DO [Primary Care Provider] - 04/17/16 9:30 am ()
--- NOTE | 2016-04-09 10:24 | Electrocardiograph Report ---
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
--- NOTE | 2016-04-09 10:43 | Electrocardiograph Report ---
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
--- NOTE | 2016-04-09 12:21 | Electrocardiograph Report ---
[facility] Test Date: 2016-04-08 Pat Name: Deb Greene Department: 112 Room: 2A31 Gender: F Rn Forensic: TLS : 1930 Requested By: Gladys Jackson Order Number: [id number] Reading MD: Venkat Mendieta MD Measurements Intervals [place] Rate: 69 P: [place]: 0 QRS: 17 QRSD: 97 T: 215 QT: 459 QTc: 479 Interpretive Statements atrial fibrillation anterolateral ischemia Electronically Signed On 04-09-16 12:20:40 EST by Venkat Mendieta MD
--- NOTE | 2016-04-09 14:29 | Electrocardiograph Report ---
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
--- NOTE | 2016-04-09 17:17 | Carotid Imaging Report ---
Carotid Duplex Patient Name:Deb Greene Order Number:[id number] Procedure Date:04/08/2016 Date:1930ge:85 yrs Gender:Female Rt.BP:128 / 78 mmHgHeart Rate: Location:[facility] Room #: Civil Engineering Specialist:Norah Trujillo, RVT, RDCS Referring MD:Gladys Jackson HAND SIGN WRITER supervisor microfilm duplicating unit:Robbie Giang DO Reading MD:Jarad Garcias MD Primary Indications:r/o stroke Risk Factors Yes/No Hypertension Yes Diabetes No Hypercholesterolemia No Smoking Current No Impressions: The bilateral carotid arteries have minimal plaque throughout. Findings Carotid Duplex: Right: The right proximal common carotid artery has a PSV of 52 cm/s and a EDV of 12 cm/s. The right mid common carotid artery has a PSV of 57 cm/s and a EDV of 13 cm/s. The right distal common carotid artery has a PSV of 48 cm/s and a EDV of 13 cm/s. The right bifurcation has a PSV of 32 cm/s and a EDV of 9 cm/s. The right proximal internal carotid artery has a PSV of 54 cm/s and a EDV of 18 cm/s. The right mid internal carotid artery has a PSV of 73 cm/s and a EDV of 31 cm/s. The right distal internal carotid artery has a PSV of 82 cm/s and a EDV of 18 cm/s. The right eca has a PSV of 83 cm/s and a EDV of 8 cm/s. The right vertebral artery has a PSV of 56 cm/s and a EDV of 14 cm/s. Left: The left proximal common carotid artery has a PSV of 52 cm/s and a EDV of 13 cm/s. The left mid common carotid artery has a PSV of 62 cm/s and a EDV of 12 cm/s. The left distal common carotid artery has a PSV of 57 cm/s and a EDV of 15 cm/s. The left bifurcation has a PSV of 51 cm/s and a EDV of 12 cm/s. The left proximal internal carotid artery has a PSV of 57 cm/s and a EDV of 20 cm/s. The left mid internal carotid artery has a PSV of 88 cm/s and a EDV of 25 cm/s. The left distal internal carotid artery has a PSV of 80 cm/s and a EDV of 22 cm/s. The left eca has a PSV of 41 cm/s and a EDV of 4 cm/s. The left vertebral artery has a PSV of 60 cm/s and a EDV of 17 cm/s. Carotid Results Right PSV EDV Assessment Proximal CCA 52 12 Normal Mid CCA 57 13 Normal Distal CCA 48 13 Normal Bifurcation 32 9 Non Stenotic Plaque Proximal ICA 54 18 Non Stenotic Plaque Mid ICA 73 31 Normal Distal ICA 82 18 Normal ECA 83 8 Normal Vertebral Artery 56 14 Normal Left PSV EDV Assessment Proximal CCA 52 13 Normal Mid CCA 62 12 Normal Distal CCA 57 15 Normal Bifurcation 51 12 Non Stenotic Plaque Proximal ICA 57 20 Non Stenotic Plaque Mid ICA 88 25 Normal Distal ICA 80 22 Normal ECA 41 4 Normal Vertebral Artery 60 17 Normal Ratio's Right ICA/CCA Ratio: 0.95 Left ICA/CCA Ratio: 1.42 Updated by Jarad Garcias MD on 04/09/2016 5:13:21 PM electronically signed on 04/09/2016 5:13:56 PM with status of Final
[2016-04-09] MEDS: Heparin 25,000 UNIT/500 ML D5W 25,000 UNIT/500 ML MLS IVC SCH (18:56)
[2016-04-09] MEDS: APIXABAN 2.5 MG TABLET PO SCH ×2 (18:58→19:24)
[2016-04-10 07:30] LABS: Hematocrit 37.3 % (35.3-44.9); Hemoglobin 11.8 g/dL (11.5-15.4); Mean Corpuscular HGB Conc 31.6 g/dL (31.6-35.5); Mean Corpuscular Hemoglobin 29.5 pg (28.0-33.3); Mean Corpuscular Volume 93.3 fL (83.0-100.0); Mean Platelet Volume 10.9 fL (9.4-12.4); Platelet Count 252 K/mcL (140-400); Red Cell Distribution Width 13.2 % (11.5-14.5)
[2016-04-10 07:33] LABS: BUN/Creatinine Ratio 21 (6-26); Blood Urea Nitrogen 20 mg/dL (7-20); Calcium 7.8 mg/dL (8.6-10.8); Carbon Dioxide 27 mEq/L (19-29); Chloride 104 mEq/L (98-109); Glucose 120 mg/dL (70-99); Magnesium 1.4 mg/dL (1.6-2.6); Osmolality,Calculated 298 (280-300); Potassium 3.4 mEq/L (3.5-4.5); Sodium 142 mEq/L (136-145); eGFR For African Americans > 60 (> 60); eGFR For Non-African Americans 56 (> 60)
[2016-04-10] MEDS: Multivit/Ca/Min/Fe/FA 1 TAB TABLET PO SCH (08:52)
[2016-04-10] MEDS: APIXABAN 2.5 MG TABLET PO SCH ×2 (08:52→21:55)
[2016-04-10] MEDS: Cholecalciferol (D-3) 1,000 UNIT TABLET PO SCH (08:52)
[2016-04-10] MEDS: Aspirin Enteric Coated 81 MG Tablet PO SCH (08:52)
[2016-04-10] MEDS ORDERED: Potassium Chloride Elixir 20 MEQ/15 ML UDC PO ONE (12:00)
[2016-04-10] MEDS: Magnesium Oxide 400 MG TABLET PO SCH ×2 (12:16→21:55)
--- NOTE | 2016-04-10 16:06 | Internal Med Progress Note ---
<Rojas Munoz - Last Filed: 04/10/16 16:04> Date of Encounter: 04/10/16 Time of Encounter: 09:40 - Assessment and plan (1) NSTEMI (non-ST elevated myocardial infarction) Current Visit: Yes Status: Acute Assessment and plan: Patient received 48 hours IV heparin. Transition to Apixaban. Echo shows EF 60% with mild aortic and mitral regurg, no wall motion abnormalaties. Cardiology following, appreciate recommendations for continued management/care Continue aspirin, statin and beta shirley (2) Atrial fibrillation, new onset Current Visit: Yes Status: Acute Assessment and plan: Patients was tachycardic for most the day, dose of diltiazem will be increased slightly to accommodate. Patients [id number] is 7 (age,HTN, gender, CHF, CVA,) and HASBLED is 3 (CVA, age,aspirin). Cardiology following appreciate recommendations for continued management/care Patient started on Apixaban Dose of diltiazem increased to accommodate patient's continued tachycardia We will continue to monitor (3) CHF (congestive heart failure) Current Visit: Yes Status: Acute Assessment and plan: Continue medical management Echocardiogram shows EF 60-65% with no evidence of diastolic dysfunction Current appears well clinically, no current signs of fluid overload Qualifiers: Congestive heart failure type: diastolic Congestive heart failure chronicity: acute Qualified Code(s): I50.31 - Acute diastolic (congestive) heart failure (4) Acute renal insufficiency Current Visit: Yes Status: Resolved Assessment and plan: 2nd to ACS. Resolved. Scr back to baseline. (5) Hypokalemia Current Visit: Yes Status: Acute Assessment and plan: K is 3.4 today after 40 mEq given yesterday We will recheck tomorrow and supplement as necessary (6) Hypomagnesemia Current Visit: Yes Status: Acute Assessment and plan: We will provide supplementation with magnesium oxide We will continue to monitor (7) Hypertension Current Visit: Yes Status: Chronic Assessment and plan: Continue home medications for blood pressure Diltiazem added for atrial fibrillation, will monitor Qualifiers: Hypertension type: essential hypertension Qualified Code(s): I10 - Essential (primary) hypertension (8) DVT prophylaxis Current Visit: Yes Status: Acute Assessment and plan: Patient on Apixaban - Time Spent With Patient Greater than 35 minutes - Subjective Interval history: Patient denies any concerns or complaints today. She denies chest pain, denies shortness of breath, denies lightheadedness or dizziness, denies palpitations. She reports she is comfortable currently. - Constitutional Vitals: Temp Pulse Resp BP Pulse Ox 97.9 F 70 17 129/72 96 04/10/16 12:15 04/10/16 12:15 04/10/16 12:15 04/10/16 12:15 04/10/16 12:15 General appearance: Present: cooperative, A&O X 1, pleasant, no acute distress, answers questions appropriately - Head Head exam: Present: atraumatic, normocephalic - Eye Eye exam: Present: conjuntiva pink, sclera anicteric - Neck Neck exam general surgery: Present: supple, trachea midline - Respiratory Respiratory exam: Present: CTAB. Absent: accessory muscle use, rales, rhonchi, wheezes - Cardiovascular Cardiovascular exam: Present: RRR, +S1, +S2, systolic murmur. Absent: diastolic murmur, gallop, rubs - GI/Abdominal GI/Abdominal exam: Present: normal bowel sounds, soft, no peritoneal signs. Absent: distended, tenderness - Extremities Exam Extremities exam: Present: warm, radial pulses palpable and symetrical. Absent : calf tenderness, cyanotic, pedal edema - Neurological Exam Neurological exam: Present: alert, no focal deficits. Absent: oriented X3 ( Oriented to self only), facial droop, speech deficit - Skin Skin exam: Present: dry, intact Internal Medicine: Result - Labs CBC & Chem 7: 04/10/16 06:50 04/10/16 06:50 Labs: Short CBC 04/10/16 Range/Units 06:50 WBC 9.7 (4.3-11.1) K/mcL Hgb 11.8 (11.5-15.4) g/dL Hct 37.3 (35.3-44.9) % Plt Count 252 (140-400) K/mcL BMP 04/10/16 06:50 Sodium 142 Potassium 3.4 L Chloride 104 Carbon Dioxide 27 BUN 20 Creatinine 0.95 Glucose 120 H Calcium 7.8 L - ABG Interpretation ABG results: PT/INR, D-dimer PT 12.3 Seconds (9.4-12.1) H 04/07/16 17:21 Consult Discharge Plan - Plan Referrals: Ronald Giang DO [Primary Care Provider] - 04/17/16 9:30 am () Prescriptions: Apixaban [Eliquis] 2.5 mg PO BID #60 tablet <SalasDrake - Last Filed: 04/10/16 17:11> Date of Encounter: 04/10/16 - Constitutional Vitals: Temp Pulse Resp BP Pulse Ox 98.9 F 70 16 139/88 98 04/10/16 17:03 04/10/16 17:03 04/10/16 17:03 04/10/16 17:03 04/10/16 17:03 Internal Medicine: Result - Labs CBC & Chem 7: 04/10/16 06:50 04/10/16 06:50 Labs: Short CBC 04/10/16 Range/Units 06:50 WBC 9.7 (4.3-11.1) K/mcL Hgb 11.8 (11.5-15.4) g/dL Hct 37.3 (35.3-44.9) % Plt Count 252 (140-400) K/mcL BMP 04/10/16 06:50 Sodium 142 Potassium 3.4 L Chloride 104 Carbon Dioxide 27 BUN 20 Creatinine 0.95 Glucose 120 H Calcium 7.8 L - ABG Interpretation ABG results: PT/INR, D-dimer PT 12.3 Seconds (9.4-12.1) H 04/07/16 17:21 - Attending Attestation The patient was seen and examined with the resident during rounds. I agree with the physical examination findings, assessment and plan as documented by the resident, Dr. Munoz. Briefly, patient admitted with a NSTEMI and new onset a fib, doing clinically well. We will continue with current management, has some hypokalemia and hypomagnesemia. We will supplement both electrolytes, monitor them tomorrow in a.m. Possible discharge tomorrow in a.m. if stable. Discussed with the patient and her son.
[2016-04-11 04:01] LABS: Basophils % 0.3 %; Eosinophils # 0.1 K/mcL (0.0-0.6); Eosinophils % 1.6 %; Hematocrit 31.8 % (35.3-44.9); Immature Granulocytes % 0.5 % (0-4); Lymphocytes # 0.9 K/mcL (0.6-4.6); Lymphocytes % 11.7 %; Mean Corpuscular HGB Conc 32.1 g/dL (31.6-35.5); Mean Corpuscular Hemoglobin 30.3 pg (28.0-33.3); Mean Corpuscular Volume 94.4 fL (83.0-100.0); Mean Platelet Volume 10.7 fL (9.4-12.4); Monocytes # 0.8 K/mcL (0.0-1.3); Monocytes % 11.3 %; Neutrophils # 5.5 K/mcL (1.6-8.9); Platelet Count 173 K/mcL (140-400); Red Blood Count 3.37 M/mcL (3.82-4.97); Red Cell Distribution Width 13.2 % (11.5-14.5); Segmented Neutrophils % 74.6 %
[2016-04-11 04:05] LABS: Hemoglobin 10.2 g/dL (11.5-15.4)
[2016-04-11 04:15] LABS: BUN/Creatinine Ratio 20 (6-26); Blood Urea Nitrogen 18 mg/dL (7-20); Calcium 7.3 mg/dL (8.6-10.8); Carbon Dioxide 26 mEq/L (19-29); Chloride 107 mEq/L (98-109); Glucose 101 mg/dL (70-99); Magnesium 1.3 mg/dL (1.6-2.6); Osmolality,Calculated 292 (280-300); Potassium 3.5 mEq/L (3.5-4.5); Sodium 140 mEq/L (136-145); eGFR For African Americans > 60 (> 60); eGFR For Non-African Americans > 60 (> 60)
[2016-04-11] MEDS ORDERED: Diltiazem CD (24hr) 180 MG CAPSULE PO SCH (09:00)
[2016-04-11] MEDS: Magnesium Oxide 400 MG TABLET PO SCH (09:14)
[2016-04-11] MEDS: APIXABAN 2.5 MG TABLET PO SCH (09:14)
[2016-04-11] MEDS: Multivit/Ca/Min/Fe/FA 1 TAB TABLET PO SCH (09:14)
[2016-04-11] MEDS: Aspirin Enteric Coated 81 MG Tablet PO SCH (09:15)
[2016-04-11] MEDS: Cholecalciferol (D-3) 1,000 UNIT TABLET PO SCH (09:15)
--- NOTE | 2016-04-11 10:25 | Physician Discharge Referral ---
<Rojas Munoz - Last Filed: 04/11/16 11:15> Home Health/Hosp Referral Info Transfer to: Home Health Provider in Charge Post Discharge: PCP - Diagnosis (1) NSTEMI (non-ST elevated myocardial infarction) Priority: Primary Status: Acute (2) Atrial fibrillation, new onset Priority: Primary Status: Acute (3) CHF (congestive heart failure) Priority: Primary Status: Acute (4) Acute renal insufficiency Priority: Primary Status: Resolved (5) Hypokalemia Priority: Primary Status: Acute (6) Hypomagnesemia Priority: Primary Status: Acute (7) Hypertension Priority: Secondary Status: Chronic (8) DVT prophylaxis Priority: Secondary Status: Acute - Respiratory Orders Smoking Cessation: Smoking cessation has been advised. For more information, call the [employer] Tobacco Quit Line at 0-386-FBAV-NOW. - Diet/Nutrition Diet/Nutrition Orders: Cardiac - Activity Activity Orders: Ambulate - Services Needed Following services are medically necessary services: Home Health Aide, Physical Therapy, Occupational Therapy, Med Social Work - Transfer Medications Prescriptions: Apixaban [Eliquis] 2.5 mg PO BID #60 tablet Atorvastatin [Lipitor] 80 mg PO HS #30 tablet Diltiazem CD (24hr) [Cardizem CD] 180 mg PO DAILY #30 cap.er.24h Magnesium Oxide [Mag-Ox] 400 mg PO BID #20 tablet Home Medications: Alendronate Sodium 70 mg PO QWEEK PRN 03/15/15 [History] Amlodipine [Norvasc] 5 mg PO DAILY 03/15/15 [History] Aspirin Enteric Coated [Aspirin EC] 81 mg PO DAILY 03/15/15 [History] Donepezil [Aricept] 10 mg PO DAILY 03/15/15 [History] Escitalopram [Lexapro] 20 mg PO DAILY 03/15/15 [History] Hydrochlorothiazide [Microzide] 12.5 mg PO DAILY 03/15/15 [History] Levothyroxine [Synthroid] 75 mcg PO DAILY 03/15/15 [History] Losartan [Cozaar] 100 mg PO DAILY 03/15/15 [History] Metoprolol [Lopressor] 50 mg PO BID 03/15/15 [History] Multivit-Min/FA/Lycopen/Lutein [Centrum Silver Tablet] 1 tab PO DAILY 03/15/15 [ History] Pantoprazole Sodium [Protonix] 40 mg PO BID 03/15/15 [History] Potassium Chloride [Klor-Con Sprinkle] 10 meq PO DAILY 03/15/15 [History] Timolol Maleate 0.5% 1 drop BOTH EYES BID 03/15/15 [History] Ergocalciferol (VITAMIN D2) [Vitamin D] 400 unit PO DAILY 04/07/16 [History] Memantine HCl 10 mg PO BID 04/07/16 [History] Naproxen Sodium [Aleve] 220 mg PO DAILY 04/07/16 [History] Apixaban [Eliquis] 2.5 mg PO BID #60 tablet 04/11/16 [Rx] Atorvastatin [Lipitor] 80 mg PO HS #30 tablet 04/11/16 [Rx] Diltiazem CD (24hr) [Cardizem CD] 180 mg PO DAILY #30 cap.er.24h 04/11/16 [Rx] Magnesium Oxide [Mag-Ox] 400 mg PO BID #20 tablet 04/11/16 [Rx] Allergies/Adverse Reactions: Allergies No Known Allergies Allergy (Verified 04/07/16 09:07) Certification: Further, I certify that my clinical findings support that this patient is homebound (i.e. absences from home require considerable and taxing effort and are for medical reasons or anglican services or infrequently or short duration when for other reasons) because: Homebound Reason: Patient requires assistance of a person or device to safely leave home, Altered mental status requiring supervision when leaving home Attestation: My signature below is to certify that this patient is under my care and that I, or nurse practitioner, or a physician's bindery assistant working with me, has a face-to -face encounter with this patient. <Drake Salas - Last Filed: 04/11/16 17:53> - Respiratory Orders Smoking Cessation: Smoking cessation has been advised. For more information, call the [place] Tobacco Quit Line at 7-209-WYFR-NOW. Certification: Further, I certify that my clinical findings support that this patient is homebound (i.e. absences from home require considerable and taxing effort and are for medical reasons or anglican services or infrequently or short duration when for other reasons) because: Attestation: My signature below is to certify that this patient is under my care and that I, or nurse practitioner, or a physician's bindery assistant working with me, has a face-to -face encounter with this patient. I examined this patient and my medical decision-making was reviewed with the ORIGINATION SPECIALIST/PA/Advanced Practice Nurse/Resident Physician. I agree with the documented findings, disposition and treatment plan as described.
--- NOTE | 2016-04-11 10:30 | Discharge Summary ---
<Rojas Munoz - Last Filed: 04/11/16 11:42> Date of Encounter: 04/11/16 Time of Encounter: 08:15 - Discharge Diagnosis (1) NSTEMI (non-ST elevated myocardial infarction) Priority: Primary Status: Acute (2) Atrial fibrillation, new onset Priority: Primary Status: Acute (3) CHF (congestive heart failure) Priority: Primary Status: Acute Qualifiers: Congestive heart failure type: diastolic Congestive heart failure chronicity: acute Qualified Code(s): I50.31 - Acute diastolic (congestive) heart failure (4) Acute renal insufficiency Priority: Primary Status: Resolved (5) Hypokalemia Priority: Primary Status: Acute (6) Hypomagnesemia Priority: Primary Status: Acute (7) Hypertension Priority: Secondary Status: Chronic Qualifiers: Hypertension type: essential hypertension Qualified Code(s): I10 - Essential (primary) hypertension (8) DVT prophylaxis Priority: Secondary Status: Acute - Discharge Medications Prescriptions: Apixaban [Eliquis] 2.5 mg PO BID #60 tablet Atorvastatin [Lipitor] 80 mg PO HS #30 tablet Diltiazem CD (24hr) [Cardizem CD] 180 mg PO DAILY #30 cap.er.24h Magnesium Oxide [Mag-Ox] 400 mg PO BID #20 tablet Home Medications: Alendronate Sodium 70 mg PO QWEEK PRN 03/15/15 [History] Amlodipine [Norvasc] 5 mg PO DAILY 03/15/15 [History] Aspirin Enteric Coated [Aspirin EC] 81 mg PO DAILY 03/15/15 [History] Donepezil [Aricept] 10 mg PO DAILY 03/15/15 [History] Escitalopram [Lexapro] 20 mg PO DAILY 03/15/15 [History] Hydrochlorothiazide [Microzide] 12.5 mg PO DAILY 03/15/15 [History] Levothyroxine [Synthroid] 75 mcg PO DAILY 03/15/15 [History] Losartan [Cozaar] 100 mg PO DAILY 03/15/15 [History] Metoprolol [Lopressor] 50 mg PO BID 03/15/15 [History] Multivit-Min/FA/Lycopen/Lutein [Centrum Silver Tablet] 1 tab PO DAILY 03/15/15 [ History] Pantoprazole Sodium [Protonix] 40 mg PO BID 12/08/15 [History] Potassium Chloride [Klor-Con Sprinkle] 10 meq PO DAILY 03/15/15 [History] Timolol Maleate 0.5% 1 drop BOTH EYES BID 03/15/15 [History] Ergocalciferol (VITAMIN D2) [Vitamin D] 400 unit PO DAILY 04/07/16 [History] Memantine HCl 10 mg PO BID 04/07/16 [History] Naproxen Sodium [Aleve] 220 mg PO DAILY 04/07/16 [History] Apixaban [Eliquis] 2.5 mg PO BID #60 tablet 04/11/16 [Rx] Atorvastatin [Lipitor] 80 mg PO HS #30 tablet 04/11/16 [Rx] Diltiazem CD (24hr) [Cardizem CD] 180 mg PO DAILY #30 cap.er.24h 04/11/16 [Rx] Magnesium Oxide [Mag-Ox] 400 mg PO BID #20 tablet 04/11/16 [Rx] Allergies/Adverse Reactions: Allergies No Known Allergies Allergy (Verified 04/07/16 09:07) Date of admission: 04/07/16 12:32 Primary care physician: Ronald Giang, Consults: 04/09/16 10:56 OT [Consult to Occupational Therapy] [CONS] Routine Comment: Evaluate, develop and implement POC PT [Consult to Physical Therapy] [CONS] Routine Comment: Evaluate, develop and implement POC 04/07/16 13:49 Consult to Cardiology [CONS] Routine Comment: Consulting Provider: Cardiology Reina Reason for Consult: new onset afib- elevated troponin Time Notified: 13:50 Call Completed: Yes 04/07/16 14:05 Consult to Ointment Mill Tender [CONS] Routine Reason for SW Consult: Discharge planning may need possible placement Discharging clinician: Rojas Munoz Anticipated date of discharge: 04/11/16 - Patient Status Disposition: Home Health Service Condition: Fair Functional capacity at discharge: independent ambulation Overall status at discharge: patient is progressing back to baseline - Discharge Instructions Follow Up With: Ronald Giang DO [Primary Care Provider] - 04/17/16 9:30 am () Additional Instructions: Take all medications as prescribed: Eliquis (apixaban), Lipitor (atorvastatin), Cardizem (diltiazem) Continue work with PT/OT to improve strength Follow-up with her PCP as scheduled on 04/17/16 at 9:30 AM Follow-up with a patient financial counselor regarding new onset atrial fibrillation Return to emergency room if return of or worsening symptoms - Diet and Activity Activity: as per physical therapy, increase activity as tolerated Diet: low salt diet Interval History: Patient reports she is doing well today, her only complaint is of mild right knee tenderness. She denies chest pain, denies shortness of breath, denies palpitations. Hospital course: Ms. Greene is a 85 year old female with prior medical history of hypertension, thyroid disease, prior CVA, and dementia who originally presented to the hospital on 04/07/16 with midsternal chest pain. She is found to be in A. fib with RVR and had a rate controlled with Cardizem drip. She was then found to have elevation of her troponins and was diagnosed with NSTEMI. She was placed on heparin drip seen by cardiology. Her CO was managed medically with aspirin, beta shirley, and statin and she was started on by mouth Cardizem. After discussion with the family did decide to pursue Apixaban for long-term anticoagulation. PT/OT recommended 24-hour supervision given patient limitations in cognition and ADLs, family states is not feasible due to financial constraints but can be around about 12 hours a day. After stabilization of her heart rate with by mouth Cardizem, patient continued to have no complaints. 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 With resolution of patient's knee pain, she is safe/ stable for discharge with home health and continued close monitoring by her family. - Time Spent with Patient Total time spent providing and/or coordinating discharge services: Greater than 30 minutes - Constitutional Vitals: Temp Pulse Resp BP Pulse Ox 98 F 72 16 170/89 91 L 04/11/16 07:21 04/11/16 07:21 04/11/16 07:21 04/11/16 07:21 04/11/16 07:21 General appearance: Present: cooperative, A&O X 1, pleasant, no acute distress, answers questions appropriately - Head Head exam: Present: atraumatic, normocephalic - Eye Eye exam: Present: conjuntiva pink, sclera anicteric - Neck Neck exam general surgery: Present: supple, trachea midline - Respiratory Respiratory exam: Present: CTAB, rales (Slight bibasilar). Absent: accessory muscle use, rhonchi, wheezes - Cardiovascular Cardiovascular exam: Present: RRR, +S1, +S2. Absent: diastolic murmur, gallop, rubs, systolic murmur - GI/Abdominal GI/Abdominal exam: Present: normal bowel sounds, soft, no peritoneal signs. Absent: distended, tenderness - Extremities Exam Extremities exam: Present: tenderness (Tenderness to movement in right knee), warm, radial pulses palpable and symetrical. Absent: calf tenderness, cyanotic , pedal edema Additional comments: warmth palpated in right knee, no swelling palpated, no tenderness to palpation - Neurological Exam Neurological exam: Present: alert, no focal deficits. Absent: oriented X3 ( Oriented to self only), facial droop, speech deficit - Skin Skin exam: Present: dry, intact <Drake Salas - Last Filed: 04/11/16 17:59> Date of Encounter: 04/11/16 Date of admission: 04/07/16 12:32 Primary care physician: Ronald Giang, Consults: 04/09/16 10:56 OT [Consult to Occupational Therapy] [CONS] Routine Comment: Evaluate, develop and implement POC PT [Consult to Physical Therapy] [CONS] Routine Comment: Evaluate, develop and implement POC 04/11/16 11:39 Consult to Physician [CONS] Routine Consulting Provider: Fan Aguilar Reason for Consult: Concern for pseudogout, might need to rt knee aspiration and steroid injection Call Completed: No 04/07/16 13:49 Consult to Cardiology [CONS] Routine Comment: Consulting Provider: Cardiology Reina Reason for Consult: new onset afib- elevated troponin Time Notified: 13:50 Call Completed: Yes 04/07/16 14:05 Consult to Ointment Mill Tender [CONS] Routine Reason for SW Consult: Discharge planning may need possible placement Hospital course: Ms. Greene is a 85 year old female - Time Spent with Patient Total time spent providing and/or coordinating discharge services: - Constitutional Vitals: Temp Pulse Resp BP Pulse Ox 97.7 F 69 14 178/71 90 L 04/11/16 10:48 04/11/16 10:48 04/11/16 10:48 04/11/16 10:48 04/11/16 10:48 - Attending Attestation I examined this patient and my medical decision-making was reviewed with the BOTTLE INSPECTOR/PA/Advanced Practice Nurse/Resident Physician. I agree with the documented findings, disposition and treatment plan as described except to the extent set forth below. Patient admitted due to NSTEMI, afib. On anticoagulation, Rate control meds. Heart rate improved. Right knee pain and swelling, consistent with pseudogout. Arthrocentesis perforrmed by rheumatology. Will d/c the patient home today with services. Follow up as outpatient. D/W patient and her family.
[2016-04-11 10:50] VITALS: BP 178/71
[2016-04-11] MEDS ORDERED: Ibuprofen 400 MG TABLET PO PRN (10:54)
--- NOTE | 2016-04-11 15:25 | Event Note ---
<Jarad Meza - Last Filed: 04/11/16 16:08> Date of Encounter: 04/11/16 Time of Encounter: 14:55 Procedure Note: Arthrocentesis Consent for Arthrocentesis: Risks and benefits discussed with patient and family. Writtenconsent obtained Indication: Knee effusion Can Feeder: Jarad Meza D.O. PGY3 Attending: Dr. Aguilar. Present for the entirety of the procedure. A time out was performed prior to the procedure. The R Knee was prepped. Anesthesia: 2 cc of Lidocaine Site marked and prepared with swabs of alcohol. A Wheel of lidocaine was placed. a 18 felisha needle was then introduced via a superolateral approach into the joint space. 45 cc's of fluid was removed from the joint space. Samples were sent to the lab for analysis. fluid was straw colored and had moderate viscosity. Estimated Blood Loss: minimal Complications: The patient tolerated the procedure well without complications. <Fan Aguilar - Last Filed: 04/11/16 16:50> Date of Encounter: 04/11/16 I was physically present and immediately available for the entire procedure. Will await results and follow-up as outpatient.
--- NOTE | 2016-04-11 16:20 | Rheumatology Consult Note ---
<Jarad Meza - Last Filed: 04/11/16 17:06> Date of Encounter: 04/11/16 Time of Encounter: 13:40 Rheumatology Assess and Plan (1) Knee effusion, right Current Visit: Yes Status: Acute Effusion of the right knee. arthrocentesis was performed at bedside. 45 CCs of straw colored viscous fluid was obtained. Highly doubt infectious etiology given appearence of fluid and also her exam findings. Fluid was sent to the lab for testing. Possibly due to pseudogout given her age, radiographic findings. Also hypomagnesemia can sometimes precipitate a pseudogout flare. This may be self limiting. Patient to follow up in office. If still symptomatic in 48 hours will consider steroid injection at that time. Recommend correction of magnesium. (2) Hypomagnesemia Current Visit: Yes Status: Acute replete (3) Afib Current Visit: Yes Status: Acute currently rate controlled on Elliquis. management per primary team. (4) CHF (congestive heart failure) Current Visit: Yes Status: Acute appears to be euvolemic on exam. Preserved EF. management per primary team. (5) Dementia Current Visit: Yes Status: Acute at baseline per family. Rheumatology HPI Consult date: 04/11/16 Requesting physician: Drake Salas Consult reason: right knee effusion Chief complaint: right knee pain History of present illness: Ms. Greene is a 85 year old female with pmh of Dementia, HTN, and hypothyroidism who was admitted to [facility] on 04/07/16 for new onset Atrial fibrillation, CHF, and NSTEMI. she was seen and evaluated by cariology. her Nstemi was treated medically. She was also diuresed. She is now on room air. her hospital course has been uncomplicated. She did develop right knee pain and an effusion. this began on 04/10/15. Rheumatology is consulted on 04/11/15 for right knee effusion. Today: Mrs. Greene is somewhat a poor historian. however her family is present and help with the history taking. She began to complain of right knee pain yesterday evening. she states that the pain is now gone but that it was moderate in intensity. she dose have some mild pain with bending the knee. Her family states that she is still able to ambulate to the bathroom and dose not seem to have too much difficulty. She admits to swelling of the knee. she denies any trauma, past surgeries of the right knee, fever, chills, or malaise. She denies ever having an episode like this prior. denies history of gout. She denies other joint pain, rashes, irritated eyes. she denies any other pain or discomfort she has no further complaints or concerns at this time. Past Med Surg Social Fam HX - Past Medical History Medical history: hypertension Psychiatric history: no psych history - Past Surgical History Surgical History: cholecystectomy, hysterectomy - Social History Smoking Status: Never smoker Smokeless Tobacco Status: No Alcohol use: none Drug use: none - Family History Father Hx Family Cardiac Disorders: Yes Medications and Allergies Alendronate Sodium 70 mg PO QWEEK PRN 03/15/15 [History] Amlodipine [Norvasc] 5 mg PO DAILY 03/15/15 [History] Aspirin Enteric Coated [Aspirin EC] 81 mg PO DAILY 03/15/15 [History] Donepezil [Aricept] 10 mg PO DAILY 03/15/15 [History] Escitalopram [Lexapro] 20 mg PO DAILY 03/15/15 [History] Hydrochlorothiazide [Microzide] 12.5 mg PO DAILY 03/15/15 [History] Levothyroxine [Synthroid] 75 mcg PO DAILY 03/15/15 [History] Losartan [Cozaar] 100 mg PO DAILY 03/15/15 [History] Metoprolol [Lopressor] 50 mg PO BID 03/15/15 [History] Multivit-Min/FA/Lycopen/Lutein [Centrum Silver Tablet] 1 tab PO DAILY 03/15/15 [ History] Pantoprazole Sodium [Protonix] 40 mg PO BID 03/15/15 [History] Potassium Chloride [Klor-Con Sprinkle] 10 meq PO DAILY 03/15/15 [History] Timolol Maleate 0.5% 1 drop BOTH EYES BID 03/15/15 [History] Ergocalciferol (VITAMIN D2) [Vitamin D] 400 unit PO DAILY 04/07/16 [History] Memantine HCl 10 mg PO BID 04/07/16 [History] Naproxen Sodium [Aleve] 220 mg PO DAILY 04/07/16 [History] Apixaban [Eliquis] 2.5 mg PO BID #60 tablet 04/11/16 [Rx] Atorvastatin [Lipitor] 80 mg PO HS #30 tablet 04/11/16 [Rx] Diltiazem CD (24hr) [Cardizem CD] 180 mg PO DAILY #30 cap.er.24h 04/11/16 [Rx] Magnesium Oxide [Mag-Ox] 400 mg PO BID #20 tablet 04/11/16 [Rx] Allergies No Known Allergies Allergy (Verified 04/07/16 09:07) All Systems Review: . Review of Systems: Constitutional: Denies fever, chills, malaise, weight change. HEENT: deneis hearing or vision changes, denies sore throat. Heart: denies chest pain or discomfort. Denies syncope or presyncope. Lungs: denies cough, wheeze, dyspnea, hemoptysis. GI: Denies N/V/D/C melena hematohcezia or abdominal pain : denies dysuria or hematuria MSK: As per HPI. additionally she admits to chronic neck and back pain. At baseline today. Neuro: Denies focal weakness, denies seizures and paresthesias Endocrine: admits to hypothyroidism. Denies polydypsia or polyuria Integument: denies rashes or lesions Heme: denies easy bleeding or bruising. denies swollen lymph nodes. ID: Denies recent travel, sick contacts, recent URI/LUTS, or diarrhea. Rheumatology Exam Exam: General:this is a very pleasant 85 y.o. lady who is currently alert and orientated to self and situation only. this is her baseline per family. she is lying in bed, smiling, appears comfortable. no acute disstress. HEENT: NC/AT, anicteric sclera, moist mucous membranes, tongue and trachea midline. Neck supple without mass or thyromegally. Heart: irregular irregular, no M/R/G no JVD Lungs: Normal effort of breathing. she dose have mild bilateral crackles at the bases of her lungs. Abdomen: soft, non distended, nontender to palpation. MSK: No gross deformities. The right knee is swollen with visible effusion. Mildly warm to touch but same temperature as other knee. she has very mild pain with articultation. the spine has a mild kyphosis of the thoracic spine. No pain with palpation. No pain with palpation of the joints of the hands and feet. Integument: No rashes or lesions noted Extremities: No clubbing cyanosis or edema. Rheumatology Results 04/11/16 03:28 04/11/16 03:28 All other labs normal. Consult Discharge Plan - Plan Additional Instructions: Take all medications as prescribed: Eliquis (apixaban), Lipitor (atorvastatin), Cardizem (diltiazem) Continue work with PT/OT to improve strength Follow-up with her PCP as scheduled on 04/17/16 at 9:30 AM Follow-up with a community health nurse staff regarding new onset atrial fibrillation Return to emergency room if return of or worsening symptoms Referrals: Ronald Giang DO [Primary Care Provider] - 04/17/16 9:30 am () Prescriptions: Apixaban [Eliquis] 2.5 mg PO BID #60 tablet Atorvastatin [Lipitor] 80 mg PO HS #30 tablet Diltiazem CD (24hr) [Cardizem CD] 180 mg PO DAILY #30 cap.er.24h Magnesium Oxide [Mag-Ox] 400 mg PO BID #20 tablet <Fan Aguilar - Last Filed: 04/11/16 17:18> Date of Encounter: 04/11/16 Rheumatology HPI History of present illness: Ms. Greene is a 85 year old female All Systems Review: A 10-system review of systems was performed and is negative for pertinent findings except as documented above in the HPI. Rheumatology Results 04/11/16 03:28 04/11/16 03:28 All other labs normal. - Attending Attestation 02/21 - CT Chest - Moderate mediastinal lymphadenopathy, mild bilateral hilar lymphadenopaty. Calcified granuloma in the left upper lobe. Mild ground-glass infiltrates present throughout both lungs. Deb Greene is an 85 with PMH of CAD, CVA, HTN and dementia who presented to the hospital with new onset afib and NSTEMI and consulted for right knee effusion. Patient has a known history of osteoarthritis; xray shows chondrocalcinosis. Right knee with effusion and pain on ROM. Patient agreeable to arthrocentesis to relieve pressure and analyze fluid. - Knee effusion may likely be inflammatory from CPPD especially given chondrocalcinosis, hypomagnesemia and fluid shifts. - Aspiration with mildly cloudy yellow fluid. - Await analysis; will call patient with results and if still symptomatic, consider corticosteroid injection as outpatient.
[2016-04-11 17:52] LABS: Source,Synovial Fluid right knee
[2016-04-11 19:05] LABS: Appearance,Synovial Fluid Cloudy (Clear-Hazy); Color,Synovial Fluid Straw (Straw)
== END 2016-04-11 17:18 | disposition home health service (06) | DRG 280 ==
LOC: EMEROO 08:54 → 2ANU 08:54 → SUATTDRO 12:32 → 2ANU 13:20
PROVIDERS: ADMIT Internal Medicine; ATTEND Internal Medicine

== ENCOUNTER 2017-11-28 22:52 | Observation (INO) ==
[2017-11-28] MEDS ORDERED: 0.9 % Sodium Chloride 500 ML IVC ONE (23:07)
--- NOTE | 2017-11-28 23:08 | Emergency Department Note ---
Disposition Clinical Impression: Bradycardia Hypotension Qualifiers: Hypotension type: unspecified hypotension type Qualified Code(s): I95.9 - Hypotension, unspecified Disposition: Admitted As Inpatient Condition: Fair Referrals: Ronald Giang DO [Primary Care Provider] - Forms: ED Satisfaction Letter General Adult HPI - General Chief complaint: ED Weakness Stated complaint: lethargy Time Seen by Provider: 11/28/17 23:02 Nursing Notes Reviewed: Yes Vital Signs Reviewed: Yes - History of Present Illness HPI Narrative: 87-year-old female past medical history of hypertension, hypothyroidism, dementia, presents emergency department with concern for being lethargic. EMS brought patient in. Stated that she was having a heart rate that was in the 30s. Patient had initial point care Accu-Chek of 110. Initial blood pressure revealed a systolic in the 80s. Patient was given 0.5 mg of atropine twice. Pain Scale: 0 - Related Data Home Medications Medication Instructions Recorded Confirmed Alendronate Sodium 70 mg PO QWEEK PRN 03/15/15 04/07/16 Amlodipine [Norvasc] 5 mg PO DAILY 03/15/15 04/07/16 Aspirin Enteric Coated [Aspirin EC] 81 mg PO DAILY 03/15/15 04/07/16 Donepezil [Aricept] 10 mg PO DAILY 03/15/15 04/07/16 Escitalopram [Lexapro] 20 mg PO DAILY 03/15/15 04/07/16 Hydrochlorothiazide [Microzide] 12.5 mg PO DAILY 03/15/15 04/07/16 Levothyroxine [Synthroid] 75 mcg PO DAILY 03/15/15 04/07/16 Losartan [Cozaar] 100 mg PO DAILY 03/15/15 04/07/16 Metoprolol [Lopressor] 50 mg PO BID 03/15/15 04/07/16 Multivit-Min/FA/Lycopen/Lutein 1 tab PO DAILY 03/15/15 04/07/16 [Centrum Silver Tablet] Pantoprazole Sodium [Protonix] 40 mg PO BID 03/15/15 04/07/16 Potassium Chloride [Klor-Con 10 meq PO DAILY 03/15/15 04/07/16 Sprinkle] Timolol Maleate 0.5% 1 drop BOTH EYES BID 03/15/15 04/07/16 Ergocalciferol (VITAMIN D2) 400 unit PO DAILY 04/07/16 04/07/16 [Vitamin D] Memantine HCl 10 mg PO BID 04/07/16 04/07/16 Naproxen Sodium [Aleve] 220 mg PO DAILY 04/07/16 04/07/16 Previous Rx's Medication Instructions Recorded Apixaban [Eliquis] 2.5 mg PO BID #60 tablet 04/11/16 Atorvastatin [Lipitor] 80 mg PO HS #30 tablet 04/11/16 Diltiazem CD (24hr) [Cardizem CD] 180 mg PO DAILY #30 cap.er.24h 04/11/16 Magnesium Oxide [Mag-Ox] 400 mg PO BID #20 tablet 04/11/16 Cephalexin [Keflex] 500 mg PO BID #20 capsule 09/20/16 Allergies Allergy/AdvReac Type Severity Reaction Status Date / Time No Known Allergies Allergy Verified 04/07/16 09:07 All systems ED: reviewed and negative except as stated. Review of Systems: As Per HPI Constitutional: Denies: fever Cardiovascular: Denies: chest pain Respiratory: Denies: cough, dyspnea Gastrointestinal: Denies: abdominal pain, nausea, vomiting Genitourinary: Denies: urgency, dysuria, frequency Musculoskeletal: Denies: back pain, neck pain Integumentary: Denies: rash Neurological: Denies: headache, weakness, numbness, paresthesias Past Medical History - Past Medical History Medical history: Reports: atrial fibrillation, cancer, dementia, hypertension, myocardial infarction, thyroid disease Surgical history: Reports: cataract, cholecystectomy (1979), hysterectomy ( ), other (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 ) Psychiatric history: Reports: anxiety, depression [employer] history: Reports: no [employer] history - Social History Smoking Status: Unknown if ever smoked Smokeless Tobacco Status: No Alcohol use: Reports: none Drug use: Reports: none Physical Exam - General Limitations: no limitations General appearance: alert - Head Head exam: normocephalic - Eye Eye exam: Present: EOMI - ENT ENT exam: mucous membranes dry - Neck Neck exam: Present: trachea midline - Chest Chest inspection: Present: symmetric chest wall rise - Respiratory Respiratory exam: Present: normal lung sounds bilaterally - Cardiovascular Cardiovascular exam: Present: normal rhythm, bradycardia - Abdominal Exam Abdominal exam: Present: soft, Non-Tender. Absent: distention, guarding, rebound, rigidity - Extremities Exam Extremities exam: Present: normal capillary refill - Neurological Exam Neurological exam: Present: alert - Psychiatric Psychiatric exam: Present: normal affect - Skin Skin exam: Present: other (Cool skin) Course Vital Signs Temperature 97.6 F 11/28/17 22:54 Pulse Rate 56 11/28/17 22:54 Respiratory Rate 17 11/28/17 22:54 Blood Pressure 111/82 11/28/17 22:54 O2 Sat by Pulse Oximetry 99 11/28/17 22:54 Temperature 97.6 F 11/28/17 22:54 Pulse Rate 52 11/29/17 00:51 Respiratory Rate 14 11/29/17 00:51 Blood Pressure 167/67 11/29/17 00:51 O2 Sat by Pulse Oximetry 97 11/29/17 00:51 Oxygen Delivery Oxygen Delivery Room Air Medical Decision Making - MDM Narrative Medical decision making narrative: An 87 year old female presents emergency department with concern for bradycardia , hypotension. Chest patient artery received 1 mg of atropine en route by EMS. Patient's initial heart rate was in the 60s. Blood pressure was normal. EKG did not reveal any ischemic ST changes. No evidence of heart block. Patient was alert and oriented throughout her stay and did not appear lethargic. We obtained CT scan of the head and it did not reveal any new intracranial abnormality. Chest x-ray did not reveal any card he pulmonary abnormality. Patient has normal creatinine. Patient was mildly hypokalemic at 3.2. We have administered 40 mEq of potassium via K rider. Patient currently takes metoprolol daily. At this time, this appears to be the most likely etiology for patient's bradycardia and hypotension. Patient was not hypotensive here in the emergency department. She did not require any atropine here either. Patient to be admitted to the hospitalist for further evaluation, management, and observation. Patient and son agree with plan. Dr. Suero agrees to accept the patient. Chest X-Ray 11/28/17 23:03 IMPRESSION: No acute abnormality detected. D/ / Rinku Smith MD / Rinku Smith MD Interpreting Provider: Rinku Smith MD Head CT 11/28/17 23:04 IMPRESSION: No acute intracranial abnormality. Chronic small vessel ischemic disease. D/ / Grady Gann MD / Grady Gann MD Interpreting Provider: Grady Gann MD Vital Signs Temperature 97.6 F 11/28/17 22:54 Pulse Rate 56 11/28/17 22:54 Respiratory Rate 17 11/28/17 22:54 Blood Pressure 111/82 11/28/17 22:54 O2 Sat by Pulse Oximetry 99 11/28/17 22:54 Temperature 97.6 F 11/28/17 22:54 Pulse Rate 52 11/29/17 00:51 Respiratory Rate 14 11/29/17 00:51 Blood Pressure 167/67 11/29/17 00:51 O2 Sat by Pulse Oximetry 97 11/29/17 00:51 Oxygen Delivery Oxygen Delivery Room Air - Lab Data Result diagrams: 11/28/17 23:00 11/28/17 23:00 Lab Results 11/28/17 11/28/17 11/28/17 Range/Units 23:00 23:00 23:00 WBC 7.5 (4.3-11.1) K/mcL RBC 3.73 L (3.82-4.97) M/mcL Hgb 11.3 L (11.5-15.4) g/dL Hct 34.3 L (35.3-44.9) % MCV 92.0 (83.0-100.0) fL MCH 30.3 (28.0-33.3) pg MCHC 32.9 (31.6-35.5) g/dL RDW 13.0 (11.5-14.5) % Plt Count 189 (140-400) K/mcL MPV 10.1 (9.4-12.4) fL Immature Gran % 0.4 (0-4) % Seg Neutrophils % 72.3 % Lymphocytes % 13.9 % Monocytes % 10.0 % Eosinophils % 2.7 % Basophils % 0.7 % Neutrophils # 5.4 (1.6-8.9) K/mcL Lymphocytes # 1.0 (0.6-4.6) K/mcL Monocytes # 0.8 (0.0-1.3) K/mcL Eosinophils # 0.2 (0.0-0.6) K/mcL Basophils # 0.1 (0.0-0.2) K/mcL Sodium 141 (136-145) mEq/L Potassium 3.2 L (3.5-5.1) mEq/L Chloride 101 (98-107) mEq/L Carbon Dioxide 28 (23-29) mEq/L BUN 35 H (8-23) mg/dL Creatinine 1.19 (0.60-1.20) mg/dL Est GFR ( Amer) 52 L (> 60) Est GFR (Non-Af Amer) 43 L (> 60) BUN/Creatinine Ratio 29 H (6-26) Glucose 128 H (70-105) mg/dL Calculated Osmolality 302 H (280-300) Lactic Acid (0.5-2.2) mmol/L Calcium 8.6 (8.6-10.3) mg/dL Magnesium (1.6-2.6) mg/dL Troponin I < 0.03 (< 0.04) ng/mL B-Natriuretic Peptide 203 H (Less than 100) pg/mL TSH 6.104 H (0.340-5.600) mcIU/mL Urine Color (Yellow) Urine Clarity (Clear) Urine pH (5.0-8.0) pH Units Ur Specific [place] (1.010-1.025) Urine Protein (Neg-Trace) mg/dL Urine Glucose (UA) (Normal) mg/dL Urine Ketones (Negative) mg/dL Urine Blood (Negative) Urine Nitrite (Negative) Urine Bilirubin (Negative) Urine Urobilinogen (Normal) mg/dL Ur Leukocyte Esterase (Negative) Urine Microscopic RBC (0-3) per hpf Urine Microscopic WBC (0-3) per hpf Ur Squamous Epith Cells (None-Few) per lpf Urine Bacteria (None-Few) per hpf Hyaline Casts (None-Few) per lpf Ur Culture Indicated? (NO) 11/29/17 11/29/17 11/29/17 Range/Units 00:19 00:41 00:41 WBC (4.3-11.1) K/mcL RBC (3.82-4.97) M/mcL Hgb (11.5-15.4) g/dL Hct (35.3-44.9) % MCV (83.0-100.0) fL MCH (28.0-33.3) pg MCHC (31.6-35.5) g/dL RDW (11.5-14.5) % Plt Count (140-400) K/mcL MPV (9.4-12.4) fL Immature Gran % (0-4) % Seg Neutrophils % % Lymphocytes % % Monocytes % % Eosinophils % % Basophils % % Neutrophils # (1.6-8.9) K/mcL Lymphocytes # (0.6-4.6) K/mcL Monocytes # (0.0-1.3) K/mcL Eosinophils # (0.0-0.6) K/mcL Basophils # (0.0-0.2) K/mcL Sodium (136-145) mEq/L Potassium (3.5-5.1) mEq/L Chloride (98-107) mEq/L Carbon Dioxide (23-29) mEq/L BUN (8-23) mg/dL Creatinine (0.60-1.20) mg/dL Est GFR ( Amer) (> 60) Est GFR (Non-Af Amer) (> 60) BUN/Creatinine Ratio (6-26) Glucose (70-105) mg/dL Calculated Osmolality (280-300) Lactic Acid 1.0 (0.5-2.2) mmol/L Calcium (8.6-10.3) mg/dL Magnesium 1.5 L (1.6-2.6) mg/dL Troponin I (< 0.04) ng/mL B-Natriuretic Peptide (Less than 100) pg/mL TSH (0.340-5.600) mcIU/mL Urine Color Yellow (Yellow) Urine Clarity Clear (Clear) Urine pH 7.0 (5.0-8.0) pH Units Ur Specific [place] 1.013 (1.010-1.025) Urine Protein Negative (Neg-Trace) mg/dL Urine Glucose (UA) Normal (Normal) mg/dL Urine Ketones Negative (Negative) mg/dL Urine Blood Negative (Negative) Urine Nitrite Negative (Negative) Urine Bilirubin Negative (Negative) Urine Urobilinogen Normal (Normal) mg/dL Ur Leukocyte Esterase Trace H (Negative) Urine Microscopic RBC 0-3 (0-3) per hpf Urine Microscopic WBC 0-3 (0-3) per hpf Ur Squamous Epith Cells Moderate H (None-Few) per lpf Urine Bacteria None Seen (None-Few) per hpf Hyaline Casts None Seen (None-Few) per lpf Ur Culture Indicated? YES A (NO) - EKG Data EKG #1 EKG attestation: Yes I reviewed and interpreted this EKG. EKG results narrative: 22:58 Heart rate 57 bpm, ID interval 166 ms, QRS duration 105 ms, QT 494, QTC 481 ms, sinus rhythm. Sinus bradycardia with a ventricular rate of 57 beats for minute. Left axis deviation. No new ischemic ST changes on this EKG. Compared to a study obtained on 2016. Attestation Statement - Attestation Attestation: I, Db Obrien DO, examined this patient [id number] and my medical decision-making was reviewed with Dr. Doc Ferguson, Resident Physician. I agree with the documented findings, disposition and treatment plan as described except to the extent set forth below. Please see my progress notes for details.
[2017-11-28 23:15] LABS: Basophils # 0.1 K/mcL (0.0-0.2); Basophils % 0.7 %; Eosinophils # 0.2 K/mcL (0.0-0.6); Eosinophils % 2.7 %; Hematocrit 34.3 % (35.3-44.9); Hemoglobin 11.3 g/dL (11.5-15.4); Immature Granulocytes % 0.4 % (0-4); Lymphocytes % 13.9 %; Mean Corpuscular HGB Conc 32.9 g/dL (31.6-35.5); Mean Corpuscular Hemoglobin 30.3 pg (28.0-33.3); Mean Platelet Volume 10.1 fL (9.4-12.4); Monocytes # 0.8 K/mcL (0.0-1.3); Neutrophils # 5.4 K/mcL (1.6-8.9); Platelet Count 189 K/mcL (140-400); Red Blood Count 3.73 M/mcL (3.82-4.97); Segmented Neutrophils % 72.3 %
[2017-11-28 23:39] LABS: BUN/Creatinine Ratio 29 (6-26); Blood Urea Nitrogen 35 mg/dL (8-23); Calcium 8.6 mg/dL (8.6-10.3); Carbon Dioxide 28 mEq/L (23-29); Chloride 101 mEq/L (98-107); Glucose 128 mg/dL (70-105); Osmolality,Calculated 302 (280-300); Potassium 3.2 mEq/L (3.5-5.1); Sodium 141 mEq/L (136-145); Troponin I < 0.03 ng/mL (< 0.04); eGFR For Non-African Americans 43 (> 60)
[2017-11-28 23:52] LABS: Thyroid Stimulating Hormone 6.104 mcIU/mL (0.340-5.600)
[2017-11-29 00:31] LABS: Bilirubin,Urine Negative (Negative); Blood,Urine Negative (Negative); Clarity,Urine Clear (Clear); Color,Urine Yellow (Yellow); Glucose,Urine (UA) Normal (Normal); Ketones,Urine Negative (Negative); Leukocyte Esterase,Urine Trace (Negative); Nitrite,Urine Negative (Negative); Protein,Urine Negative (Neg-Trace); Specific Gravity,Urine 1.013 (1.010-1.025); Urobilinogen,Urine Normal (Normal)
[2017-11-29 00:34] LABS: Bacteria,Urine None Seen per hpf (None-Few); Hyaline Casts,Urine None Seen per lpf (None-Few); RBC,Urine 0-3 per hpf (0-3); Squamous Epithelial Cell,Urine Moderate per lpf (None-Few); WBC,Urine 0-3 per hpf (0-3)
--- NOTE | 2017-11-29 01:09 | Emergency Department Note ---
Disposition Clinical Impression: Bradycardia, Hypotension Disposition: Admitted As Inpatient Condition: Fair Referrals: Ronald Giang DO [Primary Care Provider] - Forms: ED Satisfaction Letter Time of Disposition: 01:09 General Adult HPI - General Chief complaint: ED Weakness Stated complaint: lethargy Time Seen by Provider: 11/28/17 23:02 Limitations: no limitations - History of Present Illness Pain Scale: 0 - Related Data Home Medications Medication Instructions Recorded Confirmed Alendronate Sodium 70 mg PO QWEEK PRN 03/15/15 04/07/16 Amlodipine [Norvasc] 5 mg PO DAILY 03/15/15 04/07/16 Aspirin Enteric Coated [Aspirin EC] 81 mg PO DAILY 03/15/15 04/07/16 Donepezil [Aricept] 10 mg PO DAILY 03/15/15 04/07/16 Escitalopram [Lexapro] 20 mg PO DAILY 03/15/15 04/07/16 Hydrochlorothiazide [Microzide] 12.5 mg PO DAILY 03/15/15 04/07/16 Levothyroxine [Synthroid] 75 mcg PO DAILY 03/15/15 04/07/16 Losartan [Cozaar] 100 mg PO DAILY 03/15/15 04/07/16 Metoprolol [Lopressor] 50 mg PO BID 03/15/15 04/07/16 Multivit-Min/FA/Lycopen/Lutein 1 tab PO DAILY 03/15/15 04/07/16 [Centrum Silver Tablet] Pantoprazole Sodium [Protonix] 40 mg PO BID 03/15/15 04/07/16 Potassium Chloride [Klor-Con 10 meq PO DAILY 03/15/15 04/07/16 Sprinkle] Timolol Maleate 0.5% 1 drop BOTH EYES BID 03/15/15 04/07/16 Ergocalciferol (VITAMIN D2) 400 unit PO DAILY 04/07/16 04/07/16 [Vitamin D] Memantine HCl 10 mg PO BID 04/07/16 04/07/16 Naproxen Sodium [Aleve] 220 mg PO DAILY 04/07/16 04/07/16 Previous Rx's Medication Instructions Recorded Apixaban [Eliquis] 2.5 mg PO BID #60 tablet 04/11/16 Atorvastatin [Lipitor] 80 mg PO HS #30 tablet 04/11/16 Diltiazem CD (24hr) [Cardizem CD] 180 mg PO DAILY #30 cap.er.24h 04/11/16 Magnesium Oxide [Mag-Ox] 400 mg PO BID #20 tablet 04/11/16 Cephalexin [Keflex] 500 mg PO BID #20 capsule 09/20/16 Allergies Allergy/AdvReac Type Severity Reaction Status Date / Time No Known Allergies Allergy Verified 04/07/16 09:07 Constitutional: Denies: fever Cardiovascular: Denies: chest pain Respiratory: Denies: cough, dyspnea Gastrointestinal: Denies: abdominal pain, nausea, vomiting Genitourinary: Denies: urgency, dysuria, frequency Musculoskeletal: Denies: back pain, neck pain Integumentary: Denies: rash Neurological: Denies: headache, weakness, numbness, paresthesias Past Medical History - Past Medical History Medical history: Reports: atrial fibrillation, cancer, dementia, hypertension, myocardial infarction, thyroid disease Surgical history: Reports: cataract, cholecystectomy (1979), hysterectomy ( ), other (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 ) Psychiatric history: Reports: anxiety, depression [employer] history: Reports: no [employer] history - Social History Smoking Status: Unknown if ever smoked Smokeless Tobacco Status: No Alcohol use: Reports: none Drug use: Reports: none Physical Exam - General Limitations: no limitations General appearance: alert Course Vital Signs Temperature 97.6 F 11/28/17 22:54 Pulse Rate 56 11/28/17 22:54 Respiratory Rate 17 11/28/17 22:54 Blood Pressure 111/82 11/28/17 22:54 O2 Sat by Pulse Oximetry 99 11/28/17 22:54 Temperature 97.6 F 11/28/17 22:54 Pulse Rate 52 11/29/17 00:51 Respiratory Rate 14 11/29/17 00:51 Blood Pressure 167/67 11/29/17 00:51 O2 Sat by Pulse Oximetry 97 11/29/17 00:51 Oxygen Delivery Oxygen Delivery Room Air Medical Decision Making - Lab Data Result diagrams: 11/28/17 23:00 11/28/17 23:00 Lab Results 11/28/17 11/28/17 11/28/17 Range/Units 23:00 23:00 23:00 WBC 7.5 (4.3-11.1) K/mcL RBC 3.73 L (3.82-4.97) M/mcL Hgb 11.3 L (11.5-15.4) g/dL Hct 34.3 L (35.3-44.9) % MCV 92.0 (83.0-100.0) fL MCH 30.3 (28.0-33.3) pg MCHC 32.9 (31.6-35.5) g/dL RDW 13.0 (11.5-14.5) % Plt Count 189 (140-400) K/mcL MPV 10.1 (9.4-12.4) fL Immature Gran % 0.4 (0-4) % Seg Neutrophils % 72.3 % Lymphocytes % 13.9 % Monocytes % 10.0 % Eosinophils % 2.7 % Basophils % 0.7 % Neutrophils # 5.4 (1.6-8.9) K/mcL Lymphocytes # 1.0 (0.6-4.6) K/mcL Monocytes # 0.8 (0.0-1.3) K/mcL Eosinophils # 0.2 (0.0-0.6) K/mcL Basophils # 0.1 (0.0-0.2) K/mcL Sodium 141 (136-145) mEq/L Potassium 3.2 L (3.5-5.1) mEq/L Chloride 101 (98-107) mEq/L Carbon Dioxide 28 (23-29) mEq/L BUN 35 H (8-23) mg/dL Creatinine 1.19 (0.60-1.20) mg/dL Est GFR ( Amer) 52 L (> 60) Est GFR (Non-Af Amer) 43 L (> 60) BUN/Creatinine Ratio 29 H (6-26) Glucose 128 H (70-105) mg/dL Calculated Osmolality 302 H (280-300) Calcium 8.6 (8.6-10.3) mg/dL Troponin I < 0.03 (< 0.04) ng/mL B-Natriuretic Peptide 203 H (Less than 100) pg/mL TSH 6.104 H (0.340-5.600) mcIU/mL Urine Color (Yellow) Urine Clarity (Clear) Urine pH (5.0-8.0) pH Units Ur Specific [place] (1.010-1.025) Urine Protein (Neg-Trace) mg/dL Urine Glucose (UA) (Normal) mg/dL Urine Ketones (Negative) mg/dL Urine Blood (Negative) Urine Nitrite (Negative) Urine Bilirubin (Negative) Urine Urobilinogen (Normal) mg/dL Ur Leukocyte Esterase (Negative) Urine Microscopic RBC (0-3) per hpf Urine Microscopic WBC (0-3) per hpf Ur Squamous Epith Cells (None-Few) per lpf Urine Bacteria (None-Few) per hpf Hyaline Casts (None-Few) per lpf Ur Culture Indicated? (NO) 11/29/17 Range/Units 00:19 WBC (4.3-11.1) K/mcL RBC (3.82-4.97) M/mcL Hgb (11.5-15.4) g/dL Hct (35.3-44.9) % MCV (83.0-100.0) fL MCH (28.0-33.3) pg MCHC (31.6-35.5) g/dL RDW (11.5-14.5) % Plt Count (140-400) K/mcL MPV (9.4-12.4) fL Immature Gran % (0-4) % Seg Neutrophils % % Lymphocytes % % Monocytes % % Eosinophils % % Basophils % % Neutrophils # (1.6-8.9) K/mcL Lymphocytes # (0.6-4.6) K/mcL Monocytes # (0.0-1.3) K/mcL Eosinophils # (0.0-0.6) K/mcL Basophils # (0.0-0.2) K/mcL Sodium (136-145) mEq/L Potassium (3.5-5.1) mEq/L Chloride (98-107) mEq/L Carbon Dioxide (23-29) mEq/L BUN (8-23) mg/dL Creatinine (0.60-1.20) mg/dL Est GFR ( Amer) (> 60) Est GFR (Non-Af Amer) (> 60) BUN/Creatinine Ratio (6-26) Glucose (70-105) mg/dL Calculated Osmolality (280-300) Calcium (8.6-10.3) mg/dL Troponin I (< 0.04) ng/mL B-Natriuretic Peptide (Less than 100) pg/mL TSH (0.340-5.600) mcIU/mL Urine Color Yellow (Yellow) Urine Clarity Clear (Clear) Urine pH 7.0 (5.0-8.0) pH Units Ur Specific [place] 1.013 (1.010-1.025) Urine Protein Negative (Neg-Trace) mg/dL Urine Glucose (UA) Normal (Normal) mg/dL Urine Ketones Negative (Negative) mg/dL Urine Blood Negative (Negative) Urine Nitrite Negative (Negative) Urine Bilirubin Negative (Negative) Urine Urobilinogen Normal (Normal) mg/dL Ur Leukocyte Esterase Trace H (Negative) Urine Microscopic RBC 0-3 (0-3) per hpf Urine Microscopic WBC 0-3 (0-3) per hpf Ur Squamous Epith Cells Moderate H (None-Few) per lpf Urine Bacteria None Seen (None-Few) per hpf Hyaline Casts None Seen (None-Few) per lpf Ur Culture Indicated? YES A (NO) Attestation Statement - Attestation Attestation: I, Db Obrien DO, examined this patient [id number] and my medical decision-making was reviewed with Dr. Doc Ferguson, Resident Physician. I agree with the documented findings, disposition and treatment plan as described except to the extent set forth below. Please see my progress notes for details. 87-year-old female presents emergency room for lethargy and decreased responsiveness. EMS was called to the hospital secondary to this issue. Patient has never had any like this before. At home today patient started to have decreased responsiveness and slumped forward. The son is a melt supervisor and noted that the patient remained and kept pulses throughout the entire event. When EMS arrived to the house she is placed on the monitor found a heart rate in the 30s. Her blood pressure was 80/60 systolic. Fluids were started and 2 doses of 0.5 mg of atropine were given. Patient arrived here with a heart rate in the 40s to 50s with a stable blood pressure. Accu-Chek and transfer was 110. Patient was alert and follow commands but did not show any other acute etiology or symptoms at this point. Patient will have 2 IVs placed. Bedside point of care ultrasound was utilized showing no signs of pericardial effusion or wall abnormalities of the heart. Patient's lungs are clear heart is regular but bradycardic abdomen is soft nontender nondistended no guarding no rigidity. Patient moves her extremities without any difficulty. She has normal pulses in the radial femoral and DP PT distributions bilaterally are symmetrical. Patient is concerning for intracranial, pulmonary, cardiac related etiology to the symptoms here today. She will have detailed workup with CT the head chest x -ray EKG labs including CBC chemistry troponin and urinalysis along with electrolytes. Review the patient's medication list does show that she is on metoprolol at home but she denies any ingestion or extra medications taken at this time. Son is coming into the emergency room who is with her today for reevaluation in conversation. Patient otherwise clinically stable but is concerning secondary to the lethargy and somnolence on arrival. See detailed documentation of the physical exam, medical intervention, medical decision- making, disposition and the resident physician's note. No critical care provider the patient's treatment course at this time. [id number] Patient is found to have a negative workup. At this point. CT the head is unremarkable. Labs are unremarkable. EKG is stable. Heart rate has maintained greater than 45 bpm throughout the entire timeframe and the patient is more alert and had stable blood pressure. Patient will be admitted for suspected beta shirley related etiology versus symptomatic bradycardia at home. No other acute concerns or issues noted this time. The hospitalist will be contacted. Dr. Suero was contacted detailed review the presentation symptoms medical intervention were discussed. No other acute concerns or issues noted this time
[2017-11-29 01:10] LABS: Magnesium 1.5 mg/dL (1.6-2.6)
[2017-11-29] MEDS ORDERED: Naloxone 0.4 MG/ML INJ IVP PRN (05:38)
[2017-11-29] MEDS ORDERED: traMADol 50 MG TABLET PO PRN (05:38)
[2017-11-29] MEDS ORDERED: Acetaminophen 325 MG TABLET PO PRN (05:38)
[2017-11-29] MEDS ORDERED: *HR* Atropine Sulfate 1 MG/10 ML SYRINGE IVP PRN (05:42)
--- NOTE | 2017-11-29 05:46 | Internal Med History&Physical ---
<Henrry Ragsdale - Last Filed: 11/29/17 08:33> Date of Encounter: 11/29/17 Time of Encounter: 05:44 Internal Medicine - H&P: HPI Chief complaint: bradycardia, hypotension Admitted From: Emergency Dept Plans for Post Hospital Care: Home History of present illness: Ms. Greene is a 87 year old female with past medical history of hypertension, hypothyroidism, dementia, atrial fibrillation who presents to emergency department from home due to concerns of hypertension and bradycardia. Is alert and oriented 1 and is unable to provide an accurate history. There is no family present at bedside at time of interview. Patient states that she was sent here by her sister due to a foot infection however she also believes that she has at home at this time. Per EMS report, they were called due to decreased responsiveness and lethargy. Patient was found be bradycardic with a rate of 39 as well as hypotensive with a blood pressure 83/59 at time of EMS presentation. Blood sugar was 110. She did receive atropine 0.5 mg 2 on Route to emergency department. Presentation to emergency department patient's blood pressure and heart rate have improved with a rate of 56 and BP of 111/82. Of note, patient states she has been asymptomatic. She denies any symptoms of dizziness, lightheadedness, palpitations, syncopal episodes, fevers, chills, recent illness, nausea, vomiting, and she is bowel movement, dysuria. In the emergency brown, laboratory results were significant for hypokalemia at 3.2, magnesium 1.5, TSH of 6.104. Chest x-ray showed no acute process as well. Head CT. She was given 40 mEq of potassium, 2 mg of magnesium and glucagon. She is on home beta shirley. Cardiology was consult in the emergency department. Past medical history as above Past surgical history as documented, patient is unable to contribute Social history: Patient denies smoking, drinking, drug use She does state she lives alone Past Med Surg Social Fam HX - Past Medical History Medical history: atrial fibrillation, cancer, dementia, hypertension, myocardial infarction, thyroid disease Psychiatric history: anxiety, depression - Past Surgical History Surgical History: cataract, cholecystectomy, hysterectomy, other - Social History Smoking Status: Unknown if ever smoked Smokeless Tobacco Status: No Alcohol use: none Drug use: none - Family History Father Hx Family Cardiac Disorders: Yes Internal Medicine - H&P: Meds Alendronate Sodium 70 mg PO QWEEK PRN 03/15/15 [History] Aspirin Enteric Coated [Aspirin EC] 81 mg PO DAILY 03/15/15 [History] Hydrochlorothiazide [Microzide] 12.5 mg PO DAILY 03/15/15 [History] Losartan [Cozaar] 100 mg PO DAILY 03/15/15 [History] Multivit-Min/FA/Lycopen/Lutein [Centrum Silver Tablet] 1 tab PO DAILY 03/15/15 [ History] Pantoprazole Sodium [Protonix] 40 mg PO BID 03/15/15 [History] Potassium Chloride [Klor-Con Sprinkle] 10 meq PO DAILY 03/15/15 [History] Ergocalciferol (VITAMIN D2) [Vitamin D] 400 unit PO DAILY 04/07/16 [History] Memantine HCl 10 mg PO BID 04/07/16 [History] Apixaban [Eliquis] 2.5 mg PO BID #60 tablet 04/11/16 [Rx] Magnesium Oxide [Mag-Ox] 400 mg PO BID #20 tablet 04/11/16 [Rx] Atorvastatin Calcium [Lipitor] 20 mg PO HS 11/29/17 [History] Brimonidine Tartrate/Timolol [Combigan 0.2%-0.5% Eye Drops] 1 drop BOTH EYES BID 11/29/17 [History] Donepezil [Aricept] 10 mg PO HS 11/29/17 [History] Escitalopram [Lexapro] 20 mg PO DAILY 11/29/17 [History] Amlodipine Besylate 5 mg PO DAILY #60 tablet 11/30/17 [Rx] Levothyroxine [Synthroid] 75 mcg PO 0630 #30 tablet 11/30/17 [Rx] Metoprolol [Lopressor] 25 mg PO BID #60 tablet 11/30/17 [Rx] 3 Allergy/AdvReac Type Severity Reaction Status Date / Time No Known Allergies Allergy Verified 11/29/17 09:08 ROS unobtainable: due to mental status All Systems PM: A 10-system review of systems was performed and is negative for pertinent findings except as documented above in the HPI. - Constitutional Constitutional: no chills, no fever(s), no weakness - Cardiovascular Cardiovascular ROS IM: no chest pain, no diaphoresis, no dyspnea, no dyspnea on exertion, no edema, no irregular heart rhythm, no orthopnea, no palpitations, no syncope - Respiratory Respiratory: no cough, no dyspnea, no dyspnea on exertion - Genitourinary Genitourinary: no dysuria - Musculoskeletal Musculoskeletal ROS IM: no numbness, no tingling - Integumentary Integumentary IM: no rash - Neurological Neurological ROS: no confusion, no dizziness, no numbness, no tingling, no weakness - Constitutional Vitals: Temp Pulse Resp BP Pulse Ox 98 F 50 15 165/55 94 11/29/17 04:42 11/29/17 04:42 11/29/17 04:42 11/29/17 04:42 11/29/17 04:42 Exam: Gen.: Vitals noted. No acute distress. AAOx1. Resting comfortably in bed does answer questions however is confused and not oriented. HEENT: PERRL/EOMI, oropharynx clear, Normocephalic, atraumatic, mildly dry mucous membranes Cardiac: RRR, no murmur, +S1/S2, mildly bradycardic Pulmonary: CTA bilaterally, no wheezes, rales or rhonchi, equal chest expansion Abdomen: soft, nontender, BS noted, no guarding Extremities: no BLE edema, nontender calf, no cyanosis or clubbing Neuro: A&Ox1, moves all extremities, no focal deficits Psych: Appropriate mood and behavior Internal Med - H&P Results - Labs CBC & Chem 7: 11/28/17 23:00 11/28/17 23:00 - Assessment and plan (1) Bradycardia Status: Acute Assessment and plan: -Acute bradycardia with report rate of 39 by EMS - Most recent rate in 50s - EKG shows Sinus bradycardia without ST changes. - Patient is asymptomatic - Received 0.5 mg Atropine x2 by EMS. Has not required additional - BB has been reversed by ED with glucagon - Cardiology consulted in ED - HypoK and HypoMg on labs, will replenish as necessary Telemetry (2) Hypotension Status: Resolved Assessment and plan: Resolved on presentation to ED Possibly related to BB, decreased oral intake s/p 1L of NS Continue to monitor Qualifiers: Hypotension type: hypotension due to drug Qualified Code(s): I95.2 - Hypotension due to drugs (3) Hypokalemia Status: Acute Assessment and plan: K of 3.2 on presentation s/p 40 mEq in ED Repeat K pending with AM labs Replenish as necessary Possibly related to home HCTZ (4) Hypothyroid Status: Chronic Assessment and plan: Chronic Hypothyroid with TSH on presentation of 6.104, mildly increased from previous admissions Will check free t4 Qualifiers: Hypothyroidism type: unspecified Qualified Code(s): E03.9 - Hypothyroidism , unspecified (5) Hypomagnesemia Status: Acute Assessment and plan: mag of 1.5 on admission s/p 2g in ED repeat labs pending (6) Afib Status: Chronic Assessment and plan: Sinus rhythm on presentation on EKG BB being held due to bradycardia Eliquis at home medications are not yet reconciled. Rate most recently in 50s cardiology consulted in ED Qualifiers: Atrial fibrillation type: paroxysmal Qualified Code(s): I48.0 - Paroxysmal atrial fibrillation (7) Dementia Status: Chronic Assessment and plan: Unclear baseline reported lethargy more likely related to bradycardia continue home meds Qualifiers: Dementia type: unspecified type Dementia behavioral disturbance: without behavioral disturbance Qualified Code(s): F03.90 - Unspecified dementia without behavioral disturbance; F02.80 - Dementia in other diseases classified elsewhere without behavioral disturbance - Time Spent With Patient Total time spent is greater than 50% in coordination of care (as documented) at patient's floor/unit and/or counseling patient: <Kat Granda A - Last Filed: 12/05/17 08:35> Date of Encounter: 11/29/17 Internal Medicine - H&P: HPI History of present illness: Ms. Greene is a 87 year old female All Systems PM: A 10-system review of systems was performed and is negative for pertinent findings except as documented above in the HPI. - Constitutional Vitals: Temp Pulse Resp BP Pulse Ox 98.1 F 69 14 149/77 99 11/30/17 11:32 11/30/17 11:32 11/30/17 11:32 11/30/17 11:32 11/30/17 11:32 Internal Med - H&P Results - Labs CBC & Chem 7: 11/28/17 23:00 11/29/17 08:07 - Assessment and plan (1) Hypothyroid Status: Chronic Qualifiers: Hypothyroidism type: unspecified Qualified Code(s): E03.9 - Hypothyroidism , unspecified (2) Hypomagnesemia Status: Resolved (3) Afib Status: Chronic Qualifiers: Atrial fibrillation type: paroxysmal Qualified Code(s): I48.0 - Paroxysmal atrial fibrillation (4) Dementia Status: Chronic Qualifiers: Dementia type: Alzheimer's disease Alzheimer's disease onset: late-onset Dementia behavioral disturbance: without behavioral disturbance Qualified Code (s): G30.1 - Alzheimer's disease with late onset; F02.80 - Dementia in other diseases classified elsewhere without behavioral disturbance (5) Bradycardia Status: Acute (6) Hypotension Status: Resolved Qualifiers: Hypotension type: hypotension due to drug Qualified Code(s): I95.2 - Hypotension due to drugs (7) CKD (chronic kidney disease) Status: Chronic Qualifiers: Chronic kidney disease stage: stage 3 (moderate) Qualified Code(s): N18.3 - Chronic kidney disease, stage 3 (moderate) (8) Anxiety and depression Status: Chronic - Time Spent With Patient Total time spent is greater than 50% in coordination of care (as documented) at patient's floor/unit and/or counseling patient: - Attending Attestation Patient seen and examined with the resident. Agree with Assessment and plan.
--- NOTE | 2017-11-29 09:11 | Internal Med Progress Note ---
Hospitalist Progress Note - Encounter Date of Encounter: 11/29/17 Time of Encounter: 09:07 - Subjective Interval History: Ms. Greene is a 87 year old female with past medical history of hypertension, hypothyroidism, dementia, atrial fibrillation who presented to emergency department with concerns of weakness and lethargy. She happened to have hypotension and bradycardia in the ER with BP 83/59 HR 39. Pt was given Atropine x 2 doses and Glucagon in the ER. Now her HR in 60's. She is alert, awake and O to self, and place. Denied any CP / SOB. - Exam Vitals: Temp Pulse Resp BP Pulse Ox 98.0 F 68 18 183/70 96 11/29/17 06:48 11/29/17 06:48 11/29/17 06:48 11/29/17 06:48 11/29/17 06:48 Exam: Gen.: Vitals noted. No acute distress. AAOx1. Siting comfortably in chair. does answer questions however is confused and not oriented. HEENT: PERRL/EOMI, oropharynx clear, Normocephalic, atraumatic, mildly dry mucous membranes Cardiac: RRR, no murmur, +S1/S2 Pulmonary:DBS bilaterally, no wheezes, rales or rhonchi, equal chest expansion Abdomen: soft, nontender, BS noted, no guarding Extremities: no BLE edema, nontender calf, no cyanosis or clubbing Neuro: A&Ox1, moves all extremities, no focal deficits Psych: Appropriate mood and behavior - Assessment and Plan (1) Bradycardia Current Visit: Yes Status: Acute Assessment and Plan: Unclear etiology could be due to BB effect cont holding Metoprolol cont on tele check serial trop to r/o ACS Card consulted will get 2 D Echo (2) Hypokalemia Current Visit: Yes Status: Acute Assessment and Plan: cont replacing (3) Hypothyroid Current Visit: Yes Status: Chronic Assessment and Plan: Chronic Hypothyroid with TSH on presentation of 6.104, mildly increased from previous admissions free T4 - 1.32 cont home dose of Levothyroxine (4) Hypomagnesemia Current Visit: Yes Status: Acute Assessment and Plan: cont replacing (5) Afib Current Visit: Yes Status: Chronic Assessment and Plan: BB being held due to bradycardia Cont eliquis for anti coah (6) Dementia Current Visit: Yes Status: Chronic Assessment and Plan: Unclear baseline reported lethargy more likely related to bradycardia continue home meds (7) Hypotension Current Visit: Yes Status: Resolved Assessment and Plan: Improved - Time Spent with Patient Total time spent is greater than 50% in coordination of care (as documented) at patient's floor/unit and/or counseling patient: Internal Medicine: Result - Labs CBC & Chem 7: 11/28/17 23:00 11/28/17 23:00 Consult Discharge Plan - Plan Referrals: Ronald Giang DO [Primary Care Provider] - (3) Hypothyroid Qualifiers: Hypothyroidism type: unspecified Qualified Code(s): E03.9 - Hypothyroidism, unspecified (5) Afib Qualifiers: Atrial fibrillation type: paroxysmal Qualified Code(s): I48.0 - Paroxysmal atrial fibrillation (6) Dementia Qualifiers: Dementia type: unspecified type Dementia behavioral disturbance: without behavioral disturbance Qualified Code(s): F03.90 - Unspecified dementia without behavioral disturbance (7) Hypotension Qualifiers: Hypotension type: hypotension due to drug Qualified Code(s): I95.2 - Hypotension due to drugs
[2017-11-29 09:44] LABS: BUN/Creatinine Ratio 30 (6-26); Blood Urea Nitrogen 31 mg/dL (8-23); Calcium 9.2 mg/dL (8.6-10.3); Carbon Dioxide 20 mEq/L (23-29); Chloride 104 mEq/L (98-107); Glucose 68 mg/dL (70-105); Magnesium 2.1 mg/dL (1.6-2.6); Osmolality,Calculated 293 (280-300); Potassium 3.6 mEq/L (3.5-5.1); Sodium 139 mEq/L (136-145); eGFR For Non-African Americans 50 (> 60)
[2017-11-29] MEDS: hydroCHLOROthiazide 25 MG TABLET PO SCH (09:54)
[2017-11-29] MEDS: amLODIPine 5 MG TABLET PO SCH (09:55)
--- NOTE | 2017-11-29 10:32 | Cardiology Consult Note ---
<Dixon Cabello - Last Filed: 11/29/17 10:29> Date of Encounter: 11/29/17 Time of Encounter: 09:00 Assessment and Plan (1) Bradycardia Current Visit: Yes Status: Acute Patient with known afib presents with bradycardia and hypotension at home. Family not available to obtain clear history of present illness. EKG in ED showed sinus bradycardia, HR 57 bpm. She was on metoprolol 50 mg BID and cardizem 180 mg daily for her afib. These are now on hold. Telemetry review shows avg HR was 67 bpm with min HR 45 bpm at 0200 am. Recommend starting lower dose metoprolol for afib. She is on eliquis for AC. TTE ordered by primary team. TSH mildly elevated- management per primary team. (2) Afib Current Visit: Yes Status: Chronic H/o PAF diagnosed in Mar 2016. No recent cardiology f/u. Currently SR. Continue eliquis. Qualifiers: Atrial fibrillation type: paroxysmal Qualified Code(s): I48.0 - Paroxysmal atrial fibrillation Discussion w patient/family: The assessment and plan as outlined above was discussed with the patient and/or family members who expressed understanding and agreement. All questions were answered. Thank you for involving us in the care of your patient. Please call with any questions. History of Present Illness Consult date: 11/29/17 Requesting physician: Pillo Crook Consult reason: bradycardia Chief complaint: Low HR History of present illness: Ms. Greene is a 87 year old female with dementia, atrial fibrillation on [facility] [place] in 2017 with no intervention, and hypertension who presented from home by EMS with low HR and blood pressure. On my exam patient is confused and does not know why she is here. She states that she needs an x-ray. She is oriented to her self only. No family at bedside. Denies chest pain, SOB, or edema. Admits to occasional dizziness with standing. Prior cardiac testing: Echocardiogram: 04/08/2016: LVEF 60-65%. Concentric LVH. Mild aortic and mitral regurgitation. No evidence of pulmonary hypertension. Past Med Surg Social Fam HX - Past Medical History Medical history: atrial fibrillation, cancer, dementia, hypertension, myocardial infarction, thyroid disease Psychiatric history: anxiety, depression - Past Surgical History Surgical History: cataract, cholecystectomy, hysterectomy, other - Social History Smoking Status: Unknown if ever smoked Smokeless Tobacco Status: No Alcohol use: none Drug use: none - Family History Father Hx Family Cardiac Disorders: Yes Medications and Allergies Alendronate Sodium 70 mg PO QWEEK PRN 03/15/15 [History] Aspirin Enteric Coated [Aspirin EC] 81 mg PO DAILY 03/15/15 [History] Hydrochlorothiazide [Microzide] 12.5 mg PO DAILY 03/15/15 [History] Losartan [Cozaar] 100 mg PO DAILY 03/15/15 [History] Multivit-Min/FA/Lycopen/Lutein [Centrum Silver Tablet] 1 tab PO DAILY 03/15/15 [ History] Pantoprazole Sodium [Protonix] 40 mg PO BID 03/15/15 [History] Potassium Chloride [Klor-Con Sprinkle] 10 meq PO DAILY 03/15/15 [History] Ergocalciferol (VITAMIN D2) [Vitamin D] 400 unit PO DAILY 04/07/16 [History] Memantine HCl 10 mg PO BID 04/07/16 [History] Apixaban [Eliquis] 2.5 mg PO BID #60 tablet 04/11/16 [Rx] Diltiazem CD (24hr) [Cardizem CD] 180 mg PO DAILY #30 cap.er.24h 04/11/16 [Rx] Magnesium Oxide [Mag-Ox] 400 mg PO BID #20 tablet 04/11/16 [Rx] Amlodipine Besylate [Amlodipine Besylate] 2.5 mg PO DAILY 11/29/17 [History] Atorvastatin Calcium [Lipitor] 20 mg PO HS 11/29/17 [History] Brimonidine Tartrate/Timolol [Combigan 0.2%-0.5% Eye Drops] 1 drop BOTH EYES BID 11/29/17 [History] Donepezil [Aricept] 10 mg PO HS 11/29/17 [History] Escitalopram [Lexapro] 20 mg PO DAILY 11/29/17 [History] Levothyroxine Sodium [Levothyroxine Sodium] 75 mcg PO DAILY 11/29/17 [History] Metoprolol [Lopressor] 50 mg PO BID 11/29/17 [History] 3 Allergy/AdvReac Type Severity Reaction Status Date / Time No Known Allergies Allergy Verified 11/29/17 09:08 All Systems Review: The remainder of the systems were reviewed and are negative Physical Examination Vital Signs, Last 4 Hours Temp Pulse Resp BP Pulse Ox 11/29/17 06:48 98.0 F 68 18 183/70 96 General: Conversant, No Apparent Distress, Other (Oriented to self only) HEENT: Atraumatic, Normocephaly, Mucus Membranes Moist Neck: No JVD, Normal carotid pulses Cardiac: Other (Irregularly irregular) Lungs: Normal Breath Sounds, No Wheeze, Rales, Rhonchi Neuro: Alert and responsive, No focal deficits noted Abdomen: Soft, Non-Tender Skin: No rashes noted on visualized skin Musculoskeletal: No Chest Wall Tenderness Extremities: No Clubbing, No Cyanosis, No Edema, Normal Pulses Results 11/28/17 23:00 11/29/17 08:07 Lab Results 11/29/17 08:07 Sodium 139 Potassium 3.6 Chloride 104 Carbon Dioxide 20 L BUN 31 H Creatinine 1.04 Glucose 68 L Calcium 9.2 Magnesium 2.1 - Imaging and Cardiology Echo: report reviewed - EKG Interpretation EKG results cardiology: personally reviewed Consult Discharge Plan - Plan Referrals: Ronald Giang DO [Primary Care Provider] - <Nayeli Scott - Last Filed: 11/29/17 15:25> Date of Encounter: 11/29/17 - Attending Attestation I personally interviewed and examined this patient. I have reviewed all the pertinent clinical, radiologic and laboratory findings. I agree with the findings, assessment and plan as outlined by the nurse practitioner with the following additional comments: 87F presenting by EMS for altered mental status. Per family, patient was seated at a table watching TV and suddenly slumped over drooling with slurred speech. Per notes, patient bradycardiac and hypotensive in squad - no records for review. BP normal in ER, HR 50-60. Patient sleepy but arousable, conversant at bedside. Not sure where she is but knows year and name. Family present. Vital signs stable - hypertensive, HR 50-60's. No concerning exam findings. Nonfocal. CT head negative. ECG demonstrates SB 57 bpm without acute findings AVN blockers were held. Troponin negative, TSH mildly elevated. Echo from 2017 demonstrated normal LVEF, normal RV function without significant valve dysfunction. Impression/Plan: 1. Bradycardia - heart rates in the 50's seen in 2013-15 in outpatient records. This is not new. However, may be reasonable to tailor back on both AVN blockers - will stop cardizem and lower metoprolol. Average HR 68 on telemetry without pauses. 2. PAF: Known PAF diagnosed March 2016. Continue low dose BB. Anticoagulated with Eliquis. 3. Confusion: Etiology of altered mental status is unclear. CT head negative on presentation. She is not focal on exam. Consider Neurologic evaluation. Will sign off. Recommend outpatient follow up. Please call with questions. Assessment and Plan Discussion w patient/family: The assessment and plan as outlined above was discussed with the patient and/or family members who expressed understanding and agreement. All questions were answered. Thank you for involving us in the care of your patient. Please call with any questions. History of Present Illness History of present illness: Ms. Greene is a 87 year old female All Systems Review: The remainder of the systems were reviewed and are negative Physical Examination Vital Signs, Last 4 Hours Temp Pulse Resp BP Pulse Ox 11/29/17 11:17 98.7 F 56 18 175/72 98 Results 11/28/17 23:00 11/29/17 08:07 Lab Results 11/29/17 08:07 Sodium 139 Potassium 3.6 Chloride 104 Carbon Dioxide 20 L BUN 31 H Creatinine 1.04 Glucose 68 L Calcium 9.2 Magnesium 2.1
[2017-11-29] MEDS: Apixaban 5 MG TABLET PO SCH (22:17)
--- NOTE | 2017-11-30 09:19 | Electrocardiograph Report ---
[address] [place], [place] [address] Test Date: 2017-11-28 Pat Name: Deb Greene Department: [id number] Room: 2A11 Gender: F Community Case Manager: : 1930 Requested By: Doc Ferguson Order Number: [id number] Reading MD: Tyler Costa Measurements Intervals [place] Rate: 57 P: 77 DE: 166 QRS: 4 QRSD: 105 T: 198 QT: 494 QTc: 481 Interpretive Statements Sinus rhythm Anterolateral ST-T changes suggestive of ischemia Electronically Signed On 11-30-2017 9:17:47 EDT by Tyler Costa
--- NOTE | 2017-11-30 09:31 | Electrocardiograph Report ---
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
[2017-11-30] MEDS: amLODIPine 5 MG TABLET PO SCH (10:31)
[2017-11-30] MEDS: Apixaban 5 MG TABLET PO SCH (10:31)
[2017-11-30] MEDS: hydroCHLOROthiazide 25 MG TABLET PO SCH (10:31)
[2017-11-30 11:34] VITALS: BP 149/77
--- NOTE | 2017-11-30 14:28 | Discharge Summary ---
- NOTES TO OUTPATIENT PROVIDER Notes to Outpatient Provider: Lethargy and somnolence, could be from bradycardia and hypotension; hemodynamically stable in the hospital; CCB held and BB dose reduced; outpatient Cardiology f/up; Date of Encounter: 11/30/17 Time of Encounter: 09:00 - Discharge Diagnosis (1) Hypotension Priority: Primary Status: Resolved Qualifiers: Hypotension type: hypotension due to drug Qualified Code(s): I95.2 - Hypotension due to drugs (2) Bradycardia Priority: Primary Status: Acute (3) Hypothyroid Priority: Secondary Status: Chronic Qualifiers: Hypothyroidism type: unspecified Qualified Code(s): E03.9 - Hypothyroidism , unspecified (4) Hypomagnesemia Priority: Primary Status: Resolved (5) Afib Priority: Secondary Status: Chronic Qualifiers: Atrial fibrillation type: paroxysmal Qualified Code(s): I48.0 - Paroxysmal atrial fibrillation (6) Dementia Priority: Secondary Status: Chronic Qualifiers: Dementia type: Alzheimer's disease Alzheimer's disease onset: late-onset Dementia behavioral disturbance: without behavioral disturbance Qualified Code (s): G30.1 - Alzheimer's disease with late onset; F02.80 - Dementia in other diseases classified elsewhere without behavioral disturbance (7) CKD (chronic kidney disease) Priority: Secondary Status: Chronic Qualifiers: Chronic kidney disease stage: stage 3 (moderate) Qualified Code(s): N18.3 - Chronic kidney disease, stage 3 (moderate) (8) Anxiety and depression Priority: Secondary Status: Chronic Hospital course: Ms. Greene is a 87 year old female with the above medical problems, who was brought in by EMS due to having been found lethargic and poorly responsive at home. She was noted to be hypotensive and bradycardic upon EMS arrival, received 2 doses of a troponin and Dr. the emergency room. Patient's blood pressure and heart rate remained fairly stable while in the hospital. She was noted to be on Cardizem CD and metoprolol, both of which were initially held. She does have history of paroxysmal atrial fibrillation, anticoagulation with Eliquis was continued. Cardiology was consulted, low-dose metoprolol was restarted with recommendation to hold Cardizem for now. She is currently noted to have elevated blood pressure, losartan and Norvasc will be continued. TSH was noted to be 6.1 with normal Free T4. CT head in the emergency room showed no acute abnormality. Patient's mental status significantly improved and she has no concerning stroke-like signs or symptoms. She is unable to provide a detailed history due to underlying dementia and she remains pleasantly confused. She is otherwise medically stable for discharge with outpatient follow-up. Discharge discussed with: patient, family, nurse, product consultant - Time Spent with Patient Total time spent providing and/or coordinating discharge services: Greater than 30 minutes (45 min) - Discharge Medications Prescriptions: Amlodipine Besylate 5 mg PO DAILY #60 tablet Levothyroxine [Synthroid] 75 mcg PO 629 #30 tablet Metoprolol [Lopressor] 25 mg PO BID #60 tablet Home Medications: Alendronate Sodium 70 mg PO QWEEK PRN 03/15/15 [History] Aspirin Enteric Coated [Aspirin EC] 81 mg PO DAILY 03/15/15 [History] Hydrochlorothiazide [Microzide] 12.5 mg PO DAILY 03/15/15 [History] Losartan [Cozaar] 100 mg PO DAILY 03/15/15 [History] Multivit-Min/FA/Lycopen/Lutein [Centrum Silver Tablet] 1 tab PO DAILY 03/15/15 [ History] Pantoprazole Sodium [Protonix] 40 mg PO BID 03/15/15 [History] Potassium Chloride [Klor-Con Sprinkle] 10 meq PO DAILY 03/15/15 [History] Ergocalciferol (VITAMIN D2) [Vitamin D] 400 unit PO DAILY 04/07/16 [History] Memantine HCl 10 mg PO BID 04/07/16 [History] Apixaban [Eliquis] 2.5 mg PO BID #60 tablet 04/11/16 [Rx] Magnesium Oxide [Mag-Ox] 400 mg PO BID #20 tablet 04/11/16 [Rx] Atorvastatin Calcium [Lipitor] 20 mg PO HS 11/29/17 [History] Brimonidine Tartrate/Timolol [Combigan 0.2%-0.5% Eye Drops] 1 drop BOTH EYES BID 11/29/17 [History] Donepezil [Aricept] 10 mg PO HS 11/29/17 [History] Escitalopram [Lexapro] 20 mg PO DAILY 11/29/17 [History] Amlodipine Besylate 5 mg PO DAILY #60 tablet 11/30/17 [Rx] Levothyroxine [Synthroid] 75 mcg PO 0630 #30 tablet 11/30/17 [Rx] Metoprolol [Lopressor] 25 mg PO BID #60 tablet 11/30/17 [Rx] Allergies/Adverse Reactions: 3 Allergy/AdvReac Type Severity Reaction Status Date / Time No Known Allergies Allergy Verified 11/29/17 09:08 Date of admission: 11/29/17 01:18 Primary care physician: Robbie Giang DO Consults: 11/29/17 04:25 Consult to Nutrition [CONS] Routine Comment: Consulting Provider: NUTRITION Reason for Dietary Consult: Other Other:: po inktake Discharging clinician: Umm Ronquillo Anticipated date of discharge: 11/30/17 - Constitutional Vitals: Temp Pulse Resp BP Pulse Ox 98.1 F 69 14 149/77 99 11/30/17 11:32 11/30/17 11:32 11/30/17 11:32 11/30/17 11:32 11/30/17 11:32 General appearance: Present: A&O X 1. Absent: answers questions appropriately Exam: . - Cardiovascular Cardiovascular exam: Present: irregular rhythm, +S1, +S2. Absent: diastolic murmur, gallop, rubs, systolic murmur - Patient Status Disposition: Home, Self-Care Condition: Fair Functional capacity at discharge: uses cane/walker Overall status at discharge: patient is progressing back to baseline - Discharge Instructions Follow Up With: Ronald Giang DO [Primary Care Provider] - Additional Instructions: F/up with PCP in 1-2 weeks F/up with Cardiology in 3-4 weeks - Diet and Activity Activity: resume usual activities as tolerated Diet: low fat, low cholesterol, low salt diet
== END 2017-11-30 16:00 | disposition home or self-care (01) ==
LOC: EMEROOARM 22:52 → 2ANU 22:52 → SUATTDRO 11-29 01:18 → 2ANU 11-29 01:46
PROVIDERS: ADMIT Pediatrics; ATTEND Internal Medicine